=== PATIENT | female | born 1935 | race Caucasian/White ===

== ENCOUNTER 2016-10-22 14:27 | Inpatient (IN) | payer MEDICARE, BC ==
[~2016-10-22] VITALS: Ht 167.6 cm; Wt 89.1 kg
[~2016-10-22 14:27] MED LIST: COUMADIN6 MG PO; GLUCOPHAGE500 MG PO; NORCO 10/325 TA1 TA1 PO; PACERONE200 MG PO; PRINIVIL20 MG PO; TAZTIA; ZOCOR20 MG PO
[2016-10-22 17:57] VITALS: BP 148/58; BMI 31.3
[2016-10-22 18:00] VITALS: BP 163/69
[2016-10-22] MEDS ORDERED: JANTOVEN6 MG PO (18:02)
[2016-10-22] MEDS ORDERED: TIAZAC/CARDIZE240 M1 PO (18:04)
[2016-10-22] MEDS ORDERED: PRAVACHOL20 MG PO (18:05)
[2016-10-22 18:20] LABS: BASOPHILS 0.2 % (0-2); EOSINOPHILS 0.5 % (0-7); HEMATOCRIT 39.6 % (36.0-48.0); HEMOGLOBIN 13.4 g/dL (12-16); IMMATURE GRANULOCYTES 0.1 % (0-5); LYMPHOCYTES 9.2 % (15-50); MCH 30.9 pg (26.0-34.0); MCHC 33.8 g/dL (31.0-37.0); MCV 91.2 fL (80.0-100.0); MEAN PLATELET VOLUME 9.2 fL (7.4-10.4); MONOCYTES 8.6 % (2-11); NEUTROPHILS 81.4 % (40-80); RBC 4.34 10x6/uL (4.00-5.40); RDW 12.7 % (11.5-14.5); WBC 8.4 10x3/uL (4.8-10.8)
[2016-10-22 18:23] LABS: PLATELET COUNT 334 10x3/uL (130-400)
[2016-10-22 18:29] LABS: INR 1.79 (0.85-1.17); PROTIME 20.7 SECONDS (11.6-15.0)
[2016-10-22 18:41] LABS: ALBUMIN 3.1 g/dL (3.4-5.0); ANION GAP 15.8 mmol/L (8-16); BILIRUBIN - TOTAL 0.3 mg/dL (0.2-1.3); CALCIUM 8.7 mg/dL (8.5-10.1); CARBON DIOXIDE 22.9 mmol/L (21.0-32.0); CREATININE - SERUM 1.7 mg/dL (0.6-1.3); POTASSIUM - SERUM 4.7 mmol/L (3.5-5.1)
--- NOTE | 2016-10-22 19:00 | NUR ---
ASSISTED PATIENT TO BATHROOM AND BACK TO BED. GAIT IS VERY STEADY. AAOX4. RR EVEN AND UNLABORED. 0 S/S OF DISTRESS. DENIES PAIN AT THIS TIME. IV TO RIGHT AC PATENT WITH NO REDNESS OR SWELLING. TELEMETRY ON. FAMILY AT BEDSIDE. SRX2. BED LOW. CALL LIGHT WITHIN REACH.
[2016-10-22 20:23] LABS: APPEARANCE HAZY (CLEAR); BILIRUBIN NEGATIVE (NEGATIVE); COLOR YELLOW (YELLOW); GLUCOSE NEGATIVE (NEGATIVE); KETONE NEGATIVE (NEGATIVE); LEUKOCYTE ESTERASE 1+ (NEGATIVE); NITRITE NEGATIVE (NEGATIVE); PROTEIN 1+ mg/dL (NEGATIVE); UROBILINOGEN NORMAL (NORMAL)
[2016-10-22 20:24] LABS: BACTERIA MODERATE /hpf (NONE SEEN); RED CELLS - URINE OCC /hpf (0-5)
--- NOTE | 2016-10-22 23:10 | NUR ---
INITIATED FLUID BOLUS PER ORDER. PUT SCD'S ON PATIENT PER ORDER.
[2016-10-23 05:05] LABS: BASOPHILS 0.6 % (0-2); EOSINOPHILS 1.5 % (0-7); HEMATOCRIT 35.5 % (36.0-48.0); HEMOGLOBIN 12.1 g/dL (12-16); IMMATURE GRANULOCYTES 0.1 % (0-5); LYMPHOCYTES 11.4 % (15-50); MCH 30.8 pg (26.0-34.0); MCHC 34.1 g/dL (31.0-37.0); MCV 90.3 fL (80.0-100.0); MEAN PLATELET VOLUME 9.3 fL (7.4-10.4); MONOCYTES 11.1 % (2-11); NEUTROPHILS 75.3 % (40-80); PLATELET COUNT 317 10x3/uL (130-400); RBC 3.93 10x6/uL (4.00-5.40); RDW 12.7 % (11.5-14.5); WBC 6.8 10x3/uL (4.8-10.8)
[2016-10-23 05:39] LABS: ALBUMIN 2.4 g/dL (3.4-5.0); ANION GAP 12.9 mmol/L (8-16); BILIRUBIN - TOTAL 0.25 mg/dL (0.2-1.3); CARBON DIOXIDE 22.5 mmol/L (21.0-32.0); CHOL - HDL RATIO 4.8 ratio (2.3-4.1); CREATININE - SERUM 1.4 mg/dL (0.6-1.3); LDL-HDL RATIO 3.1 ratio (1.5-3.5); POTASSIUM - SERUM 4.4 mmol/L (3.5-5.1); PROTEIN - SERUM 5.3 g/dL (6.4-8.2)
[2016-10-23 08:48] VITALS: BP 171/64
--- NOTE | 2016-10-23 10:18 | CN ---
PATIENT NAME:VERONICA FERMIN MEDICAL RECORD: [id number] : 35 LOCATION:D.MS Ma2239 ADMIT DATE: 10/22/16 ACCOUNT: [id number] CONSULTING PHYSICIAN: MARCY WELLER MD REFERRING PHYSICIAN: JUSTYN GARCÍA DO DATE OF CONSULTATION: 10/22/2016 SURGICAL CONSULTATION SURGEON: Marcy Weller MD CHIEF COMPLAINT: Abdominal pain. HISTORY OF PRESENT ILLNESS: An 80-year-old female who was admitted to the hospital today with the diagnosis of pancreatic pseudocyst. She says she started having abdominal pain about 2 days ago. Since the onset, the pain has been constant. It fluctuates in intensity. The pain is located in both the left upper quadrant and along the right upper quadrant. She has been treated with outpatient antiemetics and antacids. She just complains of diarrhea, fatigue and weakness. She also states that she has had a significant 100-pound weight loss. Also, complains of early satiety. She had a laparoscopic cholecystectomy 3 years ago. At a walk-in clinic 1 week ago, her lipase was 169, but she has continued to decompensate. After she was seen by her primary care physician this morning, he ordered a CT scan and admitted to the hospital, which showed a large pseudocyst. surgical history: cholecystectomy, hysterectomy, tonsillectomy, drainage of a liver cyst. ALLERGIES: MACROBID. HOME MEDICATIONS: Please see electronic medical record for full list of home medications. SOCIAL HISTORY: , lives at home alone. Nonsmoker, nondrinker. PHYSICAL EXAMINATION: VITAL SIGNS: Temperature 98.1, heart rate 64, respirations 12, blood pressure 148/60 and satting 98% on room air. GENERAL: This is a well-developed, well-nourished female in moderate distress. PSYCHIATRIC: She is oriented times 3. EYES: Extraocular muscles are intact. EAR, NOSE AND THROAT: She has normal dentition. Mucous membranes are dry. NECK: Supple. CARDIOVASCULAR: Normal sinus rhythm. LUNGS: She had decreased breath sounds bilaterally. She has got rales on the left. ABDOMEN: Firm, mildly distended. It is dull to percussion. She has got tenderness to palpation diffusely, worse in the upper quadrants. No guarding, no rebound and no peritoneal signs. SKIN: Warm and dry, normal turgor. EXTREMITIES: She has got mild peripheral edema. NEUROLOGIC: She has a GCS of 15 with no focal deficits. LABORATORY DATA: Has been reviewed. Please see the electronic medical record for a full list of laboratory values. CT of the abdomen and pelvis images were CONSULT REPORT [id number] VERONICA FERMIN personally reviewed. The patient has a large 12 x 10 x 10 cm mass between the posterior stomach and the spleen. The patient has diffuse ascites along the abdomen as well as a pleural effusion. IMPRESSION: An 80-year-old female with pancreatic pseudocyst, abdominal pain, acute kidney injury and weight loss. PLAN: 1. The patient has been admitted to med/surg. 2. Continue IV fluids, n.p.o. 3. MRCP. 4. Consult gastroenterology for evaluation of ERCP. 5. Repeat labs in a.m. 6. I discussed the risks and benefits of multiple surgical procedures to the patient and her family at the bedside. I had also discussed the case with Dr. García. TRANSINT:[id number] Voice Confirmation ID: [id number] DOCUMENT ID: [id number] MARCY WELLER MD at 1018 CC: [id number] DICTATION DATE: 10/22/162139 SPEEDER HAND: 10/23/16 0208 ADM IN [place] [address] [place] [address]
--- NOTE | 2016-10-23 10:31 | NUR ---
Patient Name: VERONICA FERMIN Admission Status: Elective Accout number: [id number] Admission Date: 10-22-2016 : 1935 Admission Diagnosis: Attending: CLIFF Current LOS: 1 Anticipated DC Date: 10-25-2016 Planned Disposition: Home Primary Insurance: MEDICARE A & B Discharge Planning Comments: CM MET WITH PATIENT AND SPOUSE (LUIS) REGARDING D/C NEEDS AND PLANS. PATIENT LIVES WITH HER SPOUSE AND HE WILL DRIVE HER HOME AT DISCHARGE. PATIENT STATED SHE HAS 6 STEPS W/RAILS TO ENTER HOME AND NO STAIRS INSIDE HOME. PATIENT IS INDEPENDENT WITH HER CARE AND HAS A WALKER, AND GLUCOMETER (CHECKS WHEN SHE THINKS ABOUT IT). PATIENTS PCP IS DR. GARCÍA AND PHARMACY IS [facility] ON [address]. PATIENT REFUSED HOME HEALTH. CM WILL CONTINUE TO FOLLOW PATIENT WITH D/C NEEDS AND PLANS. PCP DR. GARCÍA [facility] [address] [phone] LUIS (SPOUSE) [phone] Medical Dosimetrist: Rosey Avina Is the patient Alert and Oriented? Yes 0 * How many steps to enter\exit or inside your home? 6 W/RAILS 0 * PCP DR. GARCÍA 0 * [facility] [address] [phone] 0 * Preadmission Environment Home with Family 0 * ADLs Independent 0 * Equipment Glucometer Walker 0 * List name and contact numbers for known caregivers / representatives who currently or will assist patient after discharge: LUIS (SPOUSE) [phone] 0 * Community resources currently utilized None 0 * Additional services required to return to the preadmission environment? Yes 0 * Can the patient safely return to the preadmission environment? Yes 0 * Has this patient been hospitalized within the prior 30 days at any hospital? No 0 Grand Total: 0
[2016-10-23 12:35] VITALS: BP 120/73
[2016-10-23 13:56] VITALS: Ht 167.6 cm; Wt 89.1 kg
[2016-10-23 15:05] VITALS: BP 184/82
--- NOTE | 2016-10-23 15:29 | NUR ---
CONFIRMED DOSE OF LISINOPRIL 40MG TWICE A DAY. PATIENT STATED "YES, I AM FOR SURE THAT IT MY LISINOPRIL IS PERSCRIBED 40MG TWICE A DAY."
--- NOTE | 2016-10-23 17:52 | HP ---
PATIENT: VERONICA FERMIN MEDICAL RECORD: [id number] ACCOUNT: [id number] LOCATION:D.MS Ma2239 : 35 ADMISSION DATE: 10/22/16 HISTORY AND PHYSICAL EXAMINATION HISTORY OF PRESENT ILLNESS: Ms. Webb is a pleasant 80-year-old white female who started having abdominal pain approximately 10-14 days ago. It has been pretty consistent and has actually been getting a little bit worse. She has had difficulties with nausea and vomiting and has been unable to keep much down. She has tried some antacids without much relief. She has had some diarrhea, fatigue and dizziness. She has a history of previous laparoscopic cholecystectomy. She was seen at the walk-in clinic about a week ago and had a mild elevation of her lipase at 169. Amylase was normal. Since then, she has gotten worse. She was sent for CT today, which shows pancreatitis with development of a pseudocyst. Amylase and lipase are pending. She is admitted at this time for further evaluation and therapy. PAST MEDICAL HISTORY: Significant for known hypertension, gastroparesis, prediabetes, atrial fibrillation and hyperlipidemia. PAST SURGICAL HISTORY: Include a cholecystectomy, hysterectomy, tonsillectomy, cataract removal and drainage of a liver cyst. ALLERGIES AND INTOLERANCES: INCLUDE BACTRIM, MACROBID, SIMVASTATIN AND CIPRO. HOME MEDICATIONS: Include Coumadin 6 mg tablets, 9 on Saturday and and 6 all other days, pravastatin 20 mg q. Saturday, Saturday and Saturday, fluticasone 50 mcg 2 puffs daily, lisinopril 40 mg b.i.d., Tiazac 360 daily, Carafate 1 gram 2 in the morning, 2 in the evening, omeprazole 1 a day and some allergy injections. PHYSICAL EXAMINATION: GENERAL: She appears mildly to moderately ill. She is in no distress. HEENT: Sclerae nonicteric. Mucous membranes appear a little dry. NECK: Soft and supple. HEART: Regular. LUNGS: Clear. ABDOMEN: Reveals some generalized tenderness. Liver and spleen are nonpalpable. There is a little bit more tenderness in the left upper quadrant. No edema. NEUROLOGIC: No focal changes on neuro exam. VITAL SIGNS: Height 5 feet 5 inches. Weight is 93.8. Temperature 98.3, BP 128/78, pulse is 79, O2 sat is 96% on room air. DIAGNOSTIC DATA: A KUB in the office reveals a nonspecific pattern. Chest x-ray reveals a left pleural effusion, which I suspect is reactive. IMPRESSION: 1. Acute pancreatitis. 2. History of hypertension, type 2 diabetes/prediabetes and urinary tract infection. PLAN: Admit, n.p.o., surgical consult, discussed with Dr. Castaneda, IV pain meds. We will culture her urine and add a quinolone for UTI. See orders for rest of the plan. HISTORY AND PHYSICAL [id number] VERONICA FERMIN TRANSINT:[id number] Voice Confirmation ID: [id number] DOCUMENT ID: [id number] JUSTYN GARCÍA DO at 1752 CC: [id number] DICTATION DATE: 10/22/161822 SHIPFITTERS SUPERVISOR: 10/22/162054 ADM IN [facility] [address] [place] [address]
[2016-10-23 18:28] LABS: INR 2.34 (0.85-1.17); PROTIME 25.7 SECONDS (11.6-15.0)
[2016-10-24 00:04] VITALS: BP 174/59
[2016-10-24 04:00] VITALS: BP 152/71
[2016-10-24 06:06] LABS: BASOPHILS 0.5 % (0-2); EOSINOPHILS 0.8 % (0-7); HEMATOCRIT 40.9 % (36.0-48.0); HEMOGLOBIN 13.6 g/dL (12-16); IMMATURE GRANULOCYTES 0.1 % (0-5); LYMPHOCYTES 12.6 % (15-50); MCH 30.6 pg (26.0-34.0); MCHC 33.3 g/dL (31.0-37.0); MCV 91.9 fL (80.0-100.0); MONOCYTES 10.8 % (2-11); NEUTROPHILS 75.2 % (40-80); RBC 4.45 10x6/uL (4.00-5.40); RDW 13.2 % (11.5-14.5); WBC 7.6 10x3/uL (4.8-10.8)
[2016-10-24 06:10] LABS: PLATELET COUNT 398 10x3/uL (130-400)
[2016-10-24 06:19] LABS: INR 2.41 (0.85-1.17); PROTIME 26.4 SECONDS (11.6-15.0)
[2016-10-24 06:33] LABS: ALBUMIN 2.8 g/dL (3.4-5.0); ANION GAP 16.6 mmol/L (8-16); BILIRUBIN - TOTAL 0.3 mg/dL (0.2-1.3); CALCIUM 8.7 mg/dL (8.5-10.1); CARBON DIOXIDE 19.6 mmol/L (21.0-32.0); CREATININE - SERUM 1.4 mg/dL (0.6-1.3); POTASSIUM - SERUM 4.2 mmol/L (3.5-5.1); PROTEIN - SERUM 6.1 g/dL (6.4-8.2)
[2016-10-24 08:39] VITALS: BP 165/56
[2016-10-24 13:22] VITALS: BP 182/67
[2016-10-24 17:30] VITALS: BP 141/55
[2016-10-24 20:00] VITALS: BP 164/63
[2016-10-25] VITALS: BP 120/51
[2016-10-25 04:00] VITALS: BP 152/61
[2016-10-25 06:06] LABS: ALBUMIN 2.3 g/dL (3.4-5.0); ANION GAP 13.7 mmol/L (8-16); BILIRUBIN - TOTAL 0.25 mg/dL (0.2-1.3); CARBON DIOXIDE 21.2 mmol/L (21.0-32.0); CREATININE - SERUM 1.2 mg/dL (0.6-1.3); POTASSIUM - SERUM 3.9 mmol/L (3.5-5.1)
[2016-10-25 07:03] LABS: BASOPHILS 0.5 % (0-2); EOSINOPHILS 1.6 % (0-7); HEMATOCRIT 35.5 % (36.0-48.0); HEMOGLOBIN 11.7 g/dL (12-16); IMMATURE GRANULOCYTES 0.3 % (0-5); MCH 30.2 pg (26.0-34.0); MCV 91.7 fL (80.0-100.0); MEAN PLATELET VOLUME 9.9 fL (7.4-10.4); MONOCYTES 11.2 % (2-11); NEUTROPHILS 74.4 % (40-80); PLATELET COUNT 379 10x3/uL (130-400); RBC 3.87 10x6/uL (4.00-5.40); RDW 13.1 % (11.5-14.5); WBC 7.4 10x3/uL (4.8-10.8)
[2016-10-25 07:18] LABS: INR 3.21 (0.85-1.17); PROTIME 33.1 SECONDS (11.6-15.0)
--- NOTE | 2016-10-25 07:55 | NUR ---
PT AOX4 RESP EVEN AND NONLABORED PT DENIES NEEDS AT THIS TIME IV TO RIGHT AC PATENT AND INTACT SRX2 BED AT LOWEST SETTING CALL LIGHT WITHIN REACH WILL CONTINUE TO MONITOR
[2016-10-25 08:30] VITALS: BP 183/66
[2016-10-25 12:48] VITALS: BP 146/68
[2016-10-25 17:06] VITALS: BP 107/83
[2016-10-25 20:00] VITALS: BP 152/53
--- NOTE | 2016-10-25 22:08 | NUR ---
PT RESTING IN BED. ALERT AND ORIENTED. NO SIGNS OF DISTRESS NOTED. SCHEDULED MEDS GIVEN. SHIFT ASSESSMENT COMPLETED. DENIES ANY NEEDS AT THIS TIME. BED LOW. CALL LIGHT IN REACH
[2016-10-26] VITALS: BP 146/69
[2016-10-26 04:00] VITALS: BP 166/66
--- NOTE | 2016-10-26 04:14 | NUR ---
CONTACT ISOLATION PRECAUTIONS. PT RESTING QUIETLY, EYES CLOSED. RESP EVEN, UNLABORED. NO DISTRESS NOTED. CONTINUE TAKER DOWN'S PLAN OF CARE.
[2016-10-26 06:30] LABS: BASOPHILS 0.3 % (0-2); EOSINOPHILS 1.7 % (0-7); HEMATOCRIT 36.5 % (36.0-48.0); HEMOGLOBIN 12.4 g/dL (12-16); IMMATURE GRANULOCYTES 0.1 % (0-5); LYMPHOCYTES 11.4 % (15-50); MCV 91.3 fL (80.0-100.0); MEAN PLATELET VOLUME 9.3 fL (7.4-10.4); MONOCYTES 11.1 % (2-11); NEUTROPHILS 75.4 % (40-80); PLATELET COUNT 389 10x3/uL (130-400); RDW 13.1 % (11.5-14.5); WBC 7.1 10x3/uL (4.8-10.8)
[2016-10-26 06:49] LABS: INR 2.81 (0.85-1.17); PROTIME 29.8 SECONDS (11.6-15.0)
[2016-10-26 07:23] LABS: ALBUMIN 2.2 g/dL (3.4-5.0); ANION GAP 12.6 mmol/L (8-16); BILIRUBIN - TOTAL 0.2 mg/dL (0.2-1.3); CALCIUM 7.8 mg/dL (8.5-10.1); CARBON DIOXIDE 21.2 mmol/L (21.0-32.0); CREATININE - SERUM 1.2 mg/dL (0.6-1.3); POTASSIUM - SERUM 3.8 mmol/L (3.5-5.1)
--- NOTE | 2016-10-26 07:50 | NUR ---
PT AOX4 RESP EVEN AND NONLABORED PT DENIES NEEDS AT THIS TIME IV TO RIGHT HAND PATENT AND INTACT SRX2 BED AT LOWEST SETTING CALL LIGHT WITHIN REACH WILL CONTINUE TO MONITOR
[2016-10-26 08:09] VITALS: BP 146/83
[2016-10-26] MEDS ORDERED: FLORAJEN3 CAPS460 MG PO (12:34)
[2016-10-26] MEDS ORDERED: DIOVAN80 MG PO (12:34)
[2016-10-26 12:38] VITALS: BP 113/77
[2016-10-26] MEDS ORDERED: OMNICEF300 MG PO (12:39)
[2016-10-26] MEDS ORDERED: ZOFRAN4 MG PO (12:41)
--- NOTE | 2016-10-26 12:52 | NUR ---
CM REASSESSMENT NOTE: PATIENT IS DISCHARGING TODAY/REFUSED HOME HEALTH/DENIED ANY OTHER NEEDS FOR DISCHARGE/PTS SPOUSE IS DRIVING HER HOME.
--- NOTE | 2016-10-26 16:24 | NUR ---
IV DISCONTINUED WITH CATHETER INTACT. PT GIVEN DISCHARGE INSTRUCTIONS AT THIS TIME
--- NOTE | 2016-10-26 16:33 | NUR ---
PT TAKEN VIA WHEELCHAIR VIA PRIVATE VEHICLE AT THIS TIME
== END 2016-10-26 16:35 | disposition home or self-care (01) | DRG 439 ==
LOC: D.CT 14:27 → OBSVTIME 16:48 → D.SDCHOLD 16:48 → D.MS 16:49
PROVIDERS: Family Medicine; ADMIT Family Medicine
DX: K85.80 Other acute pancreatitis without necrosis or infection (principal); N17.9 Acute kidney failure, unspecified; K86.3 Pseudocyst of pancreas; N39.0 Urinary tract infection, site not specified; R63.4 Abnormal weight loss; I10 Essential (primary) hypertension; I48.2 Chronic atrial fibrillation

== ENCOUNTER 2016-11-05 14:55 | Inpatient (IN) | payer MEDICARE, BC ==
[~2016-11-05] VITALS: Ht 165.1 cm; Wt 108.5 kg
[~2016-11-05 14:55] MED LIST changes: +DIOVAN80 MG PO; +FLORAJEN3 CAPS460 MG PO; +JANTOVEN6 MG PO; +OMNICEF300 MG PO; +PRAVACHOL20 MG PO; +TIAZAC/CARDIZE240 M1 PO; +ZOFRAN4 MG PO
--- NOTE | 2016-11-05 15:57 | NUR ---
TRANSFER FROM ADMISSIONS BY W/Ernst SHAH TO . CALL LIGHT IN REACH. WILL CONT. PLAN OF CARE.
--- NOTE | 2016-11-05 16:10 | NUR ---
RECIVED TO ROOM [address] ALARCON OFFICE. FAMILY AT SIDE. ADMIT ASSESSMENT PER RN
[2016-11-05 16:29] LABS: BASOPHILS 0.4 % (0-2); EOSINOPHILS 0.4 % (0-7); HEMATOCRIT 37.8 % (36.0-48.0); HEMOGLOBIN 12.5 g/dL (12-16); IMMATURE GRANULOCYTES 0.2 % (0-5); LYMPHOCYTES 7.7 % (15-50); MCH 30.8 pg (26.0-34.0); MCHC 33.1 g/dL (31.0-37.0); MCV 93.1 fL (80.0-100.0); MEAN PLATELET VOLUME 9.3 fL (7.4-10.4); MONOCYTES 9.7 % (2-11); NEUTROPHILS 81.6 % (40-80); PLATELET COUNT 367 10x3/uL (130-400); RBC 4.06 10x6/uL (4.00-5.40); RDW 13.3 % (11.5-14.5); WBC 5.6 10x3/uL (4.8-10.8)
[2016-11-05 16:37] LABS: INR 4.2 (0.85-1.17); PROTIME 41.1 SECONDS (11.6-15.0)
[2016-11-05 16:45] VITALS: BP 130/73; BMI 35.5
[2016-11-05 16:47] LABS: ALBUMIN 2.4 g/dL (3.4-5.0); ANION GAP 13.6 mmol/L (8-16); BILIRUBIN - TOTAL 0.24 mg/dL (0.2-1.3); CALCIUM 8.1 mg/dL (8.5-10.1); CARBON DIOXIDE 22.7 mmol/L (21.0-32.0); CREATININE - SERUM 1.7 mg/dL (0.6-1.3); MAGNESIUM - SERUM 1.7 mg/dL (1.8-2.4); POTASSIUM - SERUM 5.3 mmol/L (3.5-5.1); PRE-ALBUMIN 14.2 mg/dL (18.0-35.7)
--- NOTE | 2016-11-05 17:53 | NUR ---
WITHOUT CHANGES OR DISTRESS NOTED AT THIS TIME. FAMILY AT SIDE.
[2016-11-05 21:30] VITALS: BP 151/72
--- NOTE | 2016-11-05 22:30 | NUR ---
PT SEEN BY DR WELLER AND NEW ORDERED NOTED FOR 1000ML BOLUS OF NS TO BE ADMINISTERED. PT ALSO HAS D5.45NS @ 100ML/HR INFUSING. WILL MONITOR.
--- NOTE | 2016-11-05 23:46 | NUR ---
NS 1000ML IVF NOW UP AND INFUSING X [address] WELLER.
[2016-11-06 02:21] VITALS: BP 141/72
[2016-11-06 06:34] VITALS: BP 137/69
[2016-11-06 06:45] LABS: BASOPHILS 0.4 % (0-2); EOSINOPHILS 1.4 % (0-7); HEMATOCRIT 36.3 % (36.0-48.0); HEMOGLOBIN 12.1 g/dL (12-16); IMMATURE GRANULOCYTES 0.1 % (0-5); LYMPHOCYTES 7.4 % (15-50); MCH 30.6 pg (26.0-34.0); MCHC 33.3 g/dL (31.0-37.0); MCV 91.7 fL (80.0-100.0); MEAN PLATELET VOLUME 9.9 fL (7.4-10.4); MONOCYTES 11.9 % (2-11); NEUTROPHILS 78.8 % (40-80); PLATELET COUNT 426 10x3/uL (130-400); RBC 3.96 10x6/uL (4.00-5.40); RDW 13.2 % (11.5-14.5)
[2016-11-06 06:53] LABS: ANION GAP 11.4 mmol/L (8-16); BILIRUBIN - TOTAL 0.2 mg/dL (0.2-1.3); CALCIUM 7.6 mg/dL (8.5-10.1); CARBON DIOXIDE 23.3 mmol/L (21.0-32.0); CREATININE - SERUM 1.6 mg/dL (0.6-1.3); POTASSIUM - SERUM 4.7 mmol/L (3.5-5.1); PROTEIN - SERUM 4.7 g/dL (6.4-8.2)
[2016-11-06 06:57] LABS: INR 4.94 (0.85-1.17); PROTIME 46.8 SECONDS (11.6-15.0)
[2016-11-06 07:01] LABS: WBC 8.1 10x3/uL (4.8-10.8)
--- NOTE | 2016-11-06 08:08 | CN ---
PATIENT NAME:VERONICA FERMIN MEDICAL RECORD: [id number] : 35 LOCATION:[facility] D.2125 ADMIT DATE: 11/05/16 ACCOUNT: [id number] CONSULTING PHYSICIAN: MARCY WELLER MD REFERRING PHYSICIAN: JUSTYN GARCÍA DO DATE OF CONSULTATION: 11/05/2016 Surgical Consultation SURGEON: Marcy Weller MD. CHIEF COMPLAINT: Vomiting. HISTORY OF PRESENT ILLNESS: Mr. Fermin is an 81-year-old female well known to the service. She was admitted approximately 2 weeks ago with diagnosis of new onset of pancreatic pseudocyst. At that time, the patient had a large early 14 cm pseudocyst. She was discharged home. I guess over the last 48 hours, she has been having difficulty with persistent nausea and vomiting, early satiety. She is not having tremendous amount of pain, but she does have some left upper quadrant and epigastric pain. She complains of fullness the minute she eats, she becomes nauseous and/or throws up. She was discharged home approximately 10 days ago, tolerating a regular diet. PAST SURGICAL HISTORY: Cholecystectomy, hysterectomy, tonsillectomy, drainage of liver cyst. PAST MEDICAL HISTORY: Diabetes, atrial fibrillation, hypertension. ALLERGIES: SULFA, DOXYCYCLINE, CIPROFLOXACIN, MACROBID, SIMVASTATIN, BACTRIM, TRIMETHOPRIM. HOME MEDICATIONS: Include Diovan, Omnicef, Zofran, warfarin, Diltiazem, and pravastatin. FAMILY HISTORY: She denies any significant family history of cancer and heart disease. SOCIAL HISTORY: She is . She lives at home alone. She is a nonsmoker, nondrinker. REVIEW OF SYSTEMS: A 10-point review of systems was obtained. Pertinent positives and negatives as per the HPI. PHYSICAL EXAMINATION: VITAL SIGNS: Temperature 98.2, heart rate 71, respirations 18, blood pressure 130/73, satting 100% on room air. GENERAL: This is an elderly female in moderate distress. EYES: Extraocular muscles are intact. EAR, NOSE AND THROAT: Mucous membranes are dry. No oropharyngeal erythema or exudate. NECK: Supple. No JVD. CARDIOVASCULAR: Irregularly irregular. LUNGS: Decreased breath sounds bilaterally. ABDOMEN: Firm, mildly tender to palpation in the epigastric and left upper quadrant. She had hypoactive bowel sounds. No palpable hernia defects. CONSULT REPORT [id number] VERONICA FERMIN SKIN: Warm and dry with normal turgor. EXTREMITIES: She is neurovascularly intact. No peripheral edema. NEUROLOGIC: She has a GCS of 15 with no focal deficits. LABORATORY DATA: Reviewed. Please see electronic medical record for a full list of values for CBC, chemistry panel and coags. Previous laboratory data at the previous admission had a CA 19-9 that was 23. Her lipase is chronically elevated 394 today. IMAGING: Acute abdominal series was personally reviewed. She has a normal bowel gas pattern, no evidence of obstruction. IMPRESSION: This is an 81-year-old female with pancreatic pseudocyst, chronic vomiting, early satiety, moderate protein malnutrition and acute renal failure. PLAN: 1. The patient has been admitted to the hospital. 2. Continue IV fluid resuscitation. 3. We will consult the vascular access nurse for a PICC line, but will place a port if the patient would prefer port, discussed with the patient. We will discuss with her primary care physician in the morning. There is a CA 19-9 pending. 4. Monitor her urine output and creatinine for acute renal failure. 5. Supratherapeutic INR, hold Coumadin for procedures. Prealbumin is 14, agree with starting TPN as her pancreatic pseudocyst is likely causing external compression of her stomach and resulting in early satiety and chronic vomiting. TRANSINT:[id number] Voice Confirmation ID: [id number] DOCUMENT ID: [id number] MARCY WELLER MD at 0808 CC: [id number] DICTATION DATE: 11/05/162227 SURFACER OPERATOR: 11/06/16 0300 ADM IN [place] [address] [place] [address]
[2016-11-06 08:14] VITALS: BP 125/57
--- NOTE | 2016-11-06 08:27 | HP ---
PATIENT: VERONICA FERMIN MEDICAL RECORD: [id number] ACCOUNT: [id number] LOCATION:[address] : 35 ADMISSION DATE: 11/05/16 HISTORY AND PHYSICAL EXAMINATION HISTORY OF PRESENT ILLNESS: Ms. Fermin is an 81-year-old white female who was recently diagnosed with a large pseudocyst of the pancreas. She was discharged to home. She has not done well since then. She has had difficulties with nausea and vomiting. She had abdominal pain. She presents today with increasing nausea, vomiting and has been unable to keep anything down for the last couple of days. She complains of abdominal swelling. She complains of edema. Clinically, she appears dehydrated. She is going to be admitted for IV fluids and surgical consultation for possible central venous line placement with subsequent TPN until her pseudocyst can be treated. PAST MEDICAL HISTORY: Significant for recent diagnosis of pseudocyst, atrial fibrillation, hypertension, gastroparesis, type 2 diabetes and allergies. PAST SURGICAL HISTORY: Include cholecystectomy, hysterectomy, T&A, and cataract removal. ALLERGIES AND INTOLERANCES: INCLUDE CIPRO, BACTRIM, MACROBID AND SIMVASTATIN. HOME MEDICATIONS: Include Coumadin 9 mg on Tuesdays and , and 6 mg all other days; pravastatin 20 mg Saturday, Saturday and Saturday; fluticasone, valsartan 80 mg a day, Tiazac 360 mg 1 a day, Carafate 2 in the morning, 2 in the evening; omeprazole 40 mg a day, Culturelle capsules, Zofran p.r.n. and allergy injections. FAMILY HISTORY: Noncontributory. SOCIAL HISTORY: The patient is . She does not smoke or drink. REVIEW OF SYSTEMS: She denies any fever. She just feels terrible with nausea, vomiting, diarrhea, abdominal bloating, edema and shortness of breath. PHYSICAL EXAMINATION: GENERAL: She appears mild to moderately ill. HEENT: Mucous membranes are dry. HEART: Irregularly irregular with normal rate. LUNGS: Clear. ABDOMEN: Feels a little distended, but good bowel sounds. No masses are appreciated. EXTREMITIES: Lower extremities reveal 2+ edema. NEUROLOGIC: Without any gross focal deficits. IMPRESSION: 1. Dehydration. 2. Intractable nausea, vomiting and diarrhea. 3. Pancreatic pseudocyst. PLAN: Admit for observation. IV fluids. Discussed with Dr. Duran who is out of town, but the patient may need TPN so she can get n.p.o. and try to get her pancreas to settle down. She has a scheduled followup for repeat CT in November. We will follow BMP. See orders for plan. HISTORY AND PHYSICAL [id number] VERONICA FERMIN Alec TRANSINT:[id number] Voice Confirmation ID: [id number] DOCUMENT ID: [id number] JUSTYN GARCÍA DO at 0827 CC: [id number] DICTATION DATE: 11/05/161920 MANAGER TRAINING: 11/05/162101 ADM IN [place] [address] [place] [address]
--- NOTE | 2016-11-06 08:32 | NUR ---
ASSESSMENT DONE. DENIES NEEDS.
--- NOTE | 2016-11-06 09:23 | NUR ---
RESTS WITH EYES CLOSED. CALL LIGHT IN REACH. WILL MONITOR NEEDS.
[2016-11-06 12:00] VITALS: BP 155/69
[2016-11-06 12:41] VITALS: Ht 165.1 cm; Wt 108.5 kg
--- NOTE | 2016-11-06 15:48 | NUR ---
Nutrition follow-up/consult: Order for TPN per Dr. Castaneda. Chart reviewed. TPN order written and sent to pharmacy RN to decrease D5 1/2 NS to 60 ml/hr after TPN begins to keep IVF @ 100 ml/hr. Recommend changing IVF to 1/2 NS @ KVO. TPN will increase to 60 ml/hr after [address]N following.
--- NOTE | 2016-11-06 17:51 | NUR ---
WITHOUT CHANGES OR DISTRESS NOTED AT THIS TIME. DENIES NEEDS.
[2016-11-06 20:39] VITALS: BP 179/75
[2016-11-07 00:47] VITALS: BP 183/74
--- NOTE | 2016-11-07 02:51 | NUR ---
MEDICATED WITH ZOFRAN 4MG SIVP FOR NAUSEA. TPN CONTINUES AT 40ML/HR TO PICC LINE AND D5.45NS @ 60ML/HR INFUSING ALSO.
[2016-11-07 04:56] VITALS: BP 182/78
[2016-11-07 05:55] LABS: BASOPHILS 0.2 % (0-2); EOSINOPHILS 0.9 % (0-7); HEMATOCRIT 37.4 % (36.0-48.0); HEMOGLOBIN 12.4 g/dL (12-16); IMMATURE GRANULOCYTES 0.2 % (0-5); LYMPHOCYTES 6.2 % (15-50); MCH 30.3 pg (26.0-34.0); MCHC 33.2 g/dL (31.0-37.0); MCV 91.4 fL (80.0-100.0); MEAN PLATELET VOLUME 9.3 fL (7.4-10.4); MONOCYTES 10.1 % (2-11); NEUTROPHILS 82.4 % (40-80); PLATELET COUNT 413 10x3/uL (130-400); RBC 4.09 10x6/uL (4.00-5.40); RDW 13.4 % (11.5-14.5); WBC 9.2 10x3/uL (4.8-10.8)
[2016-11-07 06:04] LABS: INR 3.6 (0.85-1.17); PROTIME 36.3 SECONDS (11.6-15.0)
[2016-11-07 06:26] LABS: ANION GAP 12.6 mmol/L (8-16); BILIRUBIN - TOTAL 0.22 mg/dL (0.2-1.3); CARBON DIOXIDE 22.3 mmol/L (21.0-32.0); CREATININE - SERUM 1.6 mg/dL (0.6-1.3); MAGNESIUM - SERUM 1.7 mg/dL (1.8-2.4); PHOSPHOROUS 4.4 mg/dL (2.5-4.9); POTASSIUM - SERUM 4.9 mmol/L (3.5-5.1)
[2016-11-07 08:00] VITALS: BP 161/71
[2016-11-07 12:00] VITALS: BP 153/79
--- NOTE | 2016-11-07 14:30 | NUR ---
Nutrition follow-up: Chart reviewed New order sent to pharmcy for TPN @ 75 ml/hr Intralipids 20% 250 ml Q 72 hours This will better meet pts estimated nutritional needs for long-term home TPN. RDN following.
--- NOTE | 2016-11-07 15:56 | NUR ---
UP TO BR. IV PATENT. NO NEEDS INDICATED. WILL CONT. PLAN OF CARE.
--- NOTE | 2016-11-07 16:13 | NUR ---
Patient Name: VERONICA FERMIN Admission Status: Urgent Accout number: [id number] Admission Date: 11-06-2016 : 1935 Admission Diagnosis: Attending: CLIFF Current LOS: 1 Anticipated DC Date: 11-08-2016 Planned Disposition: Home with Home Health Primary Insurance: MEDICARE A & B PLANNED EXTERNAL PROVIDER: [facility], [facility] Discharge Planning Comments: * Is the patient Alert and Oriented? Yes 0 * How many steps to enter\exit or inside your home? 2 0 * PCP DR. GARCÍA 0 * Pharmacy [facility] [address] 0 * Preadmission Environment Home with Family 0 * ADLs Independent 0 * Equipment None 0 * Other Equipment NO MEDICAL EQUIPMENT PROVIDER PREFERENCE 0 * List name and contact numbers for known caregivers / representatives who currently or will assist patient after discharge: LUIS FERMIN, SPOUSE, SHAQUILLE PETERSEN, DTR, 0 * Community resources currently utilized None 0 * Please name any agencies selected above. NONE 0 * Additional services required to return to the preadmission environment? Yes * Can the patient safely return to the preadmission environment? Yes 0 * Has this patient been hospitalized within the prior 30 days at any hospital? Yes 0 CM RECEIVED ORDER TO ARRANGE HOME TPN INFUSION. CM MET WITH PT IN ROOM TO DISCUSS DISCHARGE PLANNING AND NEEDS. PT REPORTS LIVING AT HOME INDEPENDENTLY WITH HER SPOUSE. PT HAS NO MEDICAL EQUIPMENT AND NO OUTSIDE SERVICES ASSISTING IN THE HOME. CM DISCUSSED AVAILABILITY OF HOME HEALTH, REHAB SERVICES AND MEDICAL EQUIPMENT. PT WOULD LIKE [facility] AND HAS NO PREFERENCE FOR INFUSION COMPANY. CHOICE SIGNED FOR [facility]. PT REPORTS HER SPOUSE WILL PICK HER UP FOR DISCHARGE HOME. CM CALLED [facility], , WHO REPORTED THEY PROVIDE TPN AND EQUIPMENT FOR HOME INFUSION; CM FAXED REFERRAL TO [facility] AT [phone]. CM CALLED [facility], , PROVIDED REFERRAL TO [facility] WHO WILL CHECK WITH ASSEMBLER BILLIARD TABLE TOMORROW TO DETERMINE IF [facility] WILL ACCEPT PT. CM FAXED REFERRAL TO [facility] AT [phone]. CM WAITING SPECIFIC HOME HEALTH AND INFUSION ORDERS SPECIFYING TPN FORMULA, DOSE, RATE AND DURATION TO COMPLETE HOME HEALTH AND IV INFUSION ARRANGEMENTS. Powder Truck Driver: Familia Zaragoza
--- NOTE | 2016-11-07 17:21 | NUR ---
D/C HOME PER PERSONAL VEHICLE W/
--- NOTE | 2016-11-07 18:20 | NUR ---
LIPIDS TO BE RUN OVER 6 HOURS PER PHARMACIST
--- NOTE | 2016-11-07 19:30 | NUR ---
REPORT RECIEVED. ASSESSMENT COMPLETED. PT SLEEPING IN BED.
[2016-11-07 20:04] VITALS: BP 175/78
[2016-11-07 23:53] VITALS: BP 167/80
--- NOTE | 2016-11-08 02:00 | NUR ---
PT SLEEPING WITH LIGHTS AND TV OFF.
[2016-11-08 03:47] VITALS: BP 168/78
--- NOTE | 2016-11-08 04:50 | NUR ---
PT STATED " SHE WAS SICK TO HER STOMACH AND COULD SHE HAVE NAUSEA MEDICINE". PRN ZOFRAN GIVEN.
[2016-11-08 06:47] LABS: BASOPHILS 0.2 % (0-2); HEMATOCRIT 35.1 % (36.0-48.0); HEMOGLOBIN 11.8 g/dL (12-16); IMMATURE GRANULOCYTES 0.2 % (0-5); LYMPHOCYTES 4.4 % (15-50); MCH 30.6 pg (26.0-34.0); MCHC 33.6 g/dL (31.0-37.0); MCV 90.9 fL (80.0-100.0); MEAN PLATELET VOLUME 9.7 fL (7.4-10.4); NEUTROPHILS 82.2 % (40-80); PLATELET COUNT 361 10x3/uL (130-400); RBC 3.86 10x6/uL (4.00-5.40); RDW 13.3 % (11.5-14.5); WBC 9.7 10x3/uL (4.8-10.8)
[2016-11-08 07:07] LABS: ALBUMIN 1.9 g/dL (3.4-5.0); ANION GAP 14.3 mmol/L (8-16); BILIRUBIN - TOTAL 0.3 mg/dL (0.2-1.3); CALCIUM 7.7 mg/dL (8.5-10.1); CARBON DIOXIDE 20.3 mmol/L (21.0-32.0); CREATININE - SERUM 1.4 mg/dL (0.6-1.3); MAGNESIUM - SERUM 1.7 mg/dL (1.8-2.4); PHOSPHOROUS 4.5 mg/dL (2.5-4.9); POTASSIUM - SERUM 4.6 mmol/L (3.5-5.1); PROTEIN - SERUM 4.7 g/dL (6.4-8.2)
--- NOTE | 2016-11-08 07:30 | NUR ---
SHIFT REPORT RECEIVED. PT IN BED WITH LIGHT OUT. REPORTS NO PAIN AT THIS TIME. PICC LINE ON RIGHT UPPER ARM. PATENT WITH DRESSING INTACT. BRUISES NOTED ON BOTH ARMS. SALINE LOCK ON LEFT FOREARM. DRESSING INTACT. PT REPORT SOME NAUSEA. WILL CONTINUE TO MONITOR.
[2016-11-08 08:04] VITALS: BP 158/82
--- NOTE | 2016-11-08 10:22 | NUR ---
ZOFRAN GIVEN FOR NAUSEA.
[2016-11-08 11:12] LABS: INR 1.34 (0.85-1.17); PROTIME 16.4 SECONDS (11.6-15.0)
[2016-11-08 11:44] VITALS: BP 179/69
--- NOTE | 2016-11-08 12:29 | NUR ---
PT RESTING QUIETLY. CURRENTLY DOES NOT HAVE NAUSEA. BS 157.
--- NOTE | 2016-11-08 13:15 | NUR ---
CASE MANAGEMENT IN ROOM WITH PATIENT.
--- NOTE | 2016-11-08 13:39 | NUR ---
SCD'S APPLIED PER DOCTOR'S ORDERS. PT RESTING IN BED. CALL LIGHT IN REACH. NO OTHER NEEDS AT THIS TIME.
--- NOTE | 2016-11-08 13:44 | NUR ---
Patient Name: VERONICA FERMIN Encounter No: [id number] : 1935 Primary Insurance: MEDICARE A & B Anticipated DC Date: 11-08-2016 Planned Disposition: Home with Home Health External Planned Provider: [facility] DCP follow-up note: CM RECEIVED CALL FROM [facility] OF [facility], THEY CANNOT ADMIT PT UNTIL SATURDAY OR SATURDAY OF NEXT WEEK. CM RECEIVED CALL FROM [facility] INF[facility]ION WHO WILL REQUIRE SPECIFIC TPN ORDERS TO INCLUDE INFUSION TIMES IN ORDER TO CONTINUE PROCESSING FOR DELIVERY TO HOSPITAL FOR DISCHARGE HOME. CM MET AND SPOKE TO PT WHO DID NOT WANT TO WAIT FOR [facility] TO ADMIT ON SATURDAY OR SATURDAY, CHOSE [facility], CHOICE UPDATED. PT ADVISED THAT [facility] REPORTS PT'S TPN IS COVERED BY INSURANCE SHE IS NPO. PT EXPECTS TO GO HOME TOMORROW, SPOUSE TO TRANSPORT HOME. IMPORTANT MESSAGE FROM MEDICARE PROVIDED AND DISCUSSED. CM CALLED [facility], , PROVIDED REFERRAL TO [facility] WHO REPORTS THEY CAN ADMIT PT ON SAME DAY OR FOLLOWING MORNING; CM FAXED REFERRAL TO [place] AT [phone]. FOR DISCHARGE, CM TO PROVIDE [facility] WITH TPN ORDER AT FAX [phone]; CM TO FAX DISCHARGE INFORMATION TO [facility] AT [phone]. FOR HOME TPN ARRANGEMENT COMPLETION ADN TO ARRANGE HOSPITAL DELIVERY, [facility] REQUIRES SPECIFIC TPN ORDERS THAT MUST SPECIFY EITHER CONTNUOUS OR INFUSION TIMES. [facility] CAN MANAGE LABS AND TPN IF ORDER SPECIFIES "[facility] TO MANAGE TPN". Familia Zaragoza, CASE MANAGEMENT
--- NOTE | 2016-11-08 13:46 | NUR ---
SPOKE WITH CASE MANAGEMENT. HE'S WORKING ON DISCHARGE ORDERS. DOES NOT HAVE A DATE FOR DISCHARGE YET. DOCTORS HAVE NOT OK DISCHARGE FOR PATIENT AT THIS TIME.
--- NOTE | 2016-11-08 14:19 | NUR ---
CASE MANAGEMENT STATED THAT DR. CHAU OK DISCHARGE. DISCHARGE ORDERS BEING PUT TOGETHER.
--- NOTE | 2016-11-08 15:02 | NUR ---
UNPLUGGED SCD'S TO ALLOW PT GO TO THE BATHROOM. PT AMBULATED INDEPENDENTLY TO THE BATHROOM.
--- NOTE | 2016-11-08 15:24 | NUR ---
PT REPORTED NAUSEA AFTER AMBULATING TO THE BATHROOM. ZOFRAN GIVEN PER ORDERS. URINE SPECIMENT COLLECTED. PT BACK IN BED WITH SCD'S ON. NS TURNED DOWN TO 10M/HR PER ORDERS.
[2016-11-08 16:00] VITALS: BP 184/77
[2016-11-08 16:49] LABS: APPEARANCE HAZY (CLEAR); BILIRUBIN NEGATIVE (NEGATIVE); COLOR YELLOW (YELLOW); GLUCOSE 50 mg/dL (NEGATIVE); NITRITE NEGATIVE (NEGATIVE); SPECIFIC GRAVITY 1.025 (1.005-1.020); UROBILINOGEN NORMAL (NORMAL)
[2016-11-08 16:50] LABS: KETONE NEGATIVE (NEGATIVE); PROTEIN 1+ mg/dL (NEGATIVE)
[2016-11-08 16:51] LABS: BACTERIA MODERATE /hpf (NONE SEEN); EPITHELIAL CELLS 0-5 /hpf (0-5); GRANULAR CAST OCC /lpf (NONE SEEN); HYALINE CAST 0-5 /lpf (NONE SEEN); LEUKOCYTE ESTERASE TRACE (NEGATIVE); MUCUS <1+ /lpf (NONE SEEN); WHITE CELLS - URINE 0-5 /hpf (0-5)
--- NOTE | 2016-11-08 17:12 | NUR ---
BP OF 184/72 TREATED WITH 10MG OF HYDRALAZINE PER ORDERS.
--- NOTE | 2016-11-08 18:27 | NUR ---
PT REPORTED SOB. ELEVATED HEAD OF BED. BP CHECKED 150/72, FL 89, O2 SAT 97%. PT TRANSFERRED TO CHAIR TO HELP WITH BREATHING. 02 VIA NASAL CANULA APPLIED AT 1L TO HELP HER BREATHE BETTER. BS CHECKED 185. WHEEZING NOTED ON INSPIRATION ON L AND R UPPER LOBES. PT ALSO BECAME NAUSEATED. COLD WASH CLOTH PROVIDED. WILL CONTINUE TO MONITOR.
[2016-11-08 19:00] VITALS: BP 175/64
--- NOTE | 2016-11-08 19:10 | NUR ---
Recieved patient resting in bed with eyes closed, assessment completed per flowsheet. Patient AO x4, calm and cooperative. Eyes PERRLA @ 4mm with brisk response, sclera is white. S1/S2 noted, rhythmic and regular. Breathing is even and unlabored on room air, Lung sounds clear throughout. Abdomen is round and soft, non-tender to palpation with bowel sounds active x4. Patient ambulates to commode without assisstance, slightly unsteady gait noted. Full ROM all extremities with all pulses palpable, cap refill <3 sec. R upper arm PICC noted, dressing intact with TPN @ 75ml/hr and NS @ 10ml/hr. Patient c/o nausea, will provide PRN medication when available. Denies pain or other needs at this time, all VSS and will continue to monitor.
--- NOTE | 2016-11-08 21:00 | NUR ---
Patient c/o Nausea, provided PRN medication. No further needs at this time, all VSS and will continue to monitor.
--- NOTE | 2016-11-08 23:00 | NUR ---
Patient resting in bed with eyes closed. Breathing is even and unlabored on room air with O2 sat 95%. Denies pain or other needs at this time, all VSS and will continue to monitor.
[2016-11-09] VITALS: BP 154/69
--- NOTE | 2016-11-09 01:00 | NUR ---
Patient resting in bed with eyes closed, breathing is even and unlabored on room air. Denies pain or other needs at this time, all VSS and will continue to monitor.
--- NOTE | 2016-11-09 03:00 | NUR ---
Patient resting in bed with eyes closed, reassessment completed per flowsheet. Patient AO x4, calm and cooperative. Patient c/o nausea, cool washcloth provided and will give PRN medication when available.S1/S2 noted, rhythmic and regular. Breathing is even and unlabored on room air, O2 sat 94%. Denies pain or other needs at this time, all VSS and will continue to monitor.
[2016-11-09 04:00] VITALS: BP 163/73
--- NOTE | 2016-11-09 05:00 | NUR ---
Patient c/o Nausea, PRN Zofran given and cool washcloth provided. Will continue to monitor.
[2016-11-09 05:48] LABS: BASOPHILS 0.2 % (0-2); EOSINOPHILS 0.6 % (0-7); HEMATOCRIT 37.1 % (36.0-48.0); HEMOGLOBIN 12.2 g/dL (12-16); IMMATURE GRANULOCYTES 0.3 % (0-5); MCH 29.9 pg (26.0-34.0); MCHC 32.9 g/dL (31.0-37.0); MCV 90.9 fL (80.0-100.0); MEAN PLATELET VOLUME 9.7 fL (7.4-10.4); MONOCYTES 11.6 % (2-11); NEUTROPHILS 80.3 % (40-80); PLATELET COUNT 297 10x3/uL (130-400); RBC 4.08 10x6/uL (4.00-5.40); RDW 13.2 % (11.5-14.5); WBC 11.4 10x3/uL (4.8-10.8)
[2016-11-09 06:10] LABS: ANION GAP 15.1 mmol/L (8-16); BILIRUBIN - TOTAL 0.4 mg/dL (0.2-1.3); CALCIUM 7.9 mg/dL (8.5-10.1); CARBON DIOXIDE 20.7 mmol/L (21.0-32.0); CREATININE - SERUM 1.4 mg/dL (0.6-1.3); MAGNESIUM - SERUM 1.7 mg/dL (1.8-2.4); PHOSPHOROUS 4.4 mg/dL (2.5-4.9); POTASSIUM - SERUM 4.8 mmol/L (3.5-5.1); PROTEIN - SERUM 5.1 g/dL (6.4-8.2)
--- NOTE | 2016-11-09 07:19 | NUR ---
PT SITTING UP IN BED WATCHING TV, DENIES NEEDS WILL CONT TO MONITOR
[2016-11-09 07:56] VITALS: BP 151/80
--- NOTE | 2016-11-09 09:33 | NUR ---
WAS CALLED TO PT ROOM TO ADMINISTER ZOFRAN. PT IS IN BED WITH WASHCLOTH OVER HER FACE HOLDING BATH BASIN. AND DAUGHTER AT BEDSIDE. DAUGHTER ASKED WHEN PT HAD LAST ZOFRAN INJECTION. TOLD HER IT WAS AT 5 AM. PT DAUGHTER SAID "WELL SHE NEEDS HER ZOFRAN EVERY 4 HOURS ON THE DOT AND YALL NEED TO GIVE IT TO HER." EXPLAINED TO PT AND PT FAMILY THAT IT IS A PRN DRUG, WE DO NOT ADMINISTER IT ON A SCHEDULE. LET THEM KNOW THAT SINCE SHE RECEIVED IT AROUND 9:20, THEN SHE CAN REQUEST TO HAVE IT AGAIN AT 1:20. BUT SHE DOES HAVE TO ASK FOR IT. PT AND PT FAMILY VERBALIZE UNDERSTANDING.
[2016-11-09] MEDS ORDERED: PROTONIX40 MG PO (10:48)
[2016-11-09 11:55] VITALS: BP 179/68
[2016-11-09 12:00] LABS: INR 1.21 (0.85-1.17); PROTIME 15.1 SECONDS (11.6-15.0)
--- NOTE | 2016-11-09 13:07 | NUR ---
Patient Name: VERONICA FERMIN Encounter No: [id number] : 1935 Primary Insurance: MEDICARE A & B Anticipated DC Date: 11-09-2016 Planned Disposition: Home with Home Health External Planned Provider: [facility] / [facility] DCP follow-up note: CM NOTIFIED PT WILL NOT DISCHARGE HOME TODAY. CM CALLED AND NOTIFIED KAM OF [facility] [phone] AND YAS OF [facility] AT [phone]. [facility] CAN PROVIDE TPN FOR WEEKEND DISCHARGE IF NEEDED. FOR DISCHARGE, NOTIFY [facility],[phone], WHO WILL NEED EARLY NOTIFICATION POSSIBLE ON DAY OF DISCHARGE IT WILL TAKE AT LEAST THREE HOURS TO MIX AND DELIVER TPN TO THE HOSPITAL FOR DISCHARGE HOME. ALSO NOTIFY [facility], [place] OFFICE, ; FAX DISCHARGE INFORMATION TO [place] AT [phone]. Familia Zaragoza, CASE MANAGEMENT
--- NOTE | 2016-11-09 14:54 | NUR ---
Nutrition Follow Up: Chart reviewed. Noted pt will not d/c today. +BM 11/08/16. Wt stable. Labs reviewed. Meds noted. Pt with TPN of D25, AA 4.25% @ 75 ml/hr; 20% Lipids 250 ml every 72 hours. Current TPN regimen is adequate for d/c home. RD will continue to monitor pt progress.
--- NOTE | 2016-11-09 18:01 | NUR ---
PT SITTING UP IN BED DENIES NEEDS
[2016-11-09 19:00] VITALS: BP 181/84
--- NOTE | 2016-11-09 20:57 | NUR ---
HS MEDS GIVEN, DENIES NEEDS.
[2016-11-10] VITALS: BP 188/110
--- NOTE | 2016-11-10 02:33 | NUR ---
HYDRALAZINE 10 MG GIVEN IV FOR ELEVATED BP OF 188/110.
[2016-11-10 04:00] VITALS: BP 127/70
[2016-11-10 06:38] LABS: BASOPHILS 0.1 % (0-2); EOSINOPHILS 0.1 % (0-7); HEMATOCRIT 39.9 % (36.0-48.0); HEMOGLOBIN 13.1 g/dL (12-16); IMMATURE GRANULOCYTES 0.5 % (0-5); LYMPHOCYTES 1.6 % (15-50); MCH 30.2 pg (26.0-34.0); MCHC 32.8 g/dL (31.0-37.0); MCV 91.9 fL (80.0-100.0); MONOCYTES 8.6 % (2-11); NEUTROPHILS 89.1 % (40-80); PLATELET COUNT 283 10x3/uL (130-400); RBC 4.34 10x6/uL (4.00-5.40); RDW 13.2 % (11.5-14.5)
[2016-11-10 06:39] LABS: WBC 14.5 10x3/uL (4.8-10.8)
[2016-11-10 06:45] LABS: INR 1.12 (0.85-1.17); PROTIME 14.3 SECONDS (11.6-15.0)
[2016-11-10 06:46] LABS: HEMOGLOBIN A1C 5.8 % (4.8-6.0)
[2016-11-10 07:00] LABS: ALBUMIN 2.5 g/dL (3.4-5.0); ANION GAP 17.2 mmol/L (8-16); BILIRUBIN - TOTAL 0.4 mg/dL (0.2-1.3); CALCIUM 8.5 mg/dL (8.5-10.1); CARBON DIOXIDE 20.3 mmol/L (21.0-32.0); CREATININE - SERUM 1.5 mg/dL (0.6-1.3); MAGNESIUM - SERUM 1.9 mg/dL (1.8-2.4); PHOSPHOROUS 4.1 mg/dL (2.5-4.9); POTASSIUM - SERUM 5.5 mmol/L (3.5-5.1); PROTEIN - SERUM 5.6 g/dL (6.4-8.2)
--- NOTE | 2016-11-10 07:09 | NUR ---
PT SITTING UP IN BED SLEEPING NO S/S DISTRESS NOTED. RR EVEN AND UNLABORED. WILL CONT TO MONITOR
[2016-11-10 09:12] VITALS: BP 155/71
--- NOTE | 2016-11-10 10:07 | NUR ---
STAFF HAS ASKED PT TWICE TO GET CLEANED UP AND DO LINEN CHANGE. PT REFUSED BOTH TIMES.
[2016-11-10 12:39] VITALS: BP 172/76
--- NOTE | 2016-11-10 14:33 | NUR ---
PT SITTING UP IN BED DENIES NEEDS WILL CONT TO MONITOR
[2016-11-10 15:50] VITALS: BP 176/69
--- NOTE | 2016-11-10 16:35 | NUR ---
PT SITTING UP IN BED DENIES NEEDS WILL CONT TO MONITOR. AT BEDSIDE
--- NOTE | 2016-11-10 18:10 | NUR ---
PT SITTING UP IN BED DENIES NEEDS OTHER THAN ZOFRAN WHEN TIME. NOT DUE UNTIL 1999.
[2016-11-10 19:00] VITALS: BP 153/79
--- NOTE | 2016-11-10 19:35 | NUR ---
INITIAL ROUNDS COMPLETED. PT RESTING WITH EYES CLOSED. RESP EVEN AND REGULAR. SR UP X2, CALL LIGHT WITHIN REACH.
[2016-11-11] VITALS (8 sets, daily range): BP systolic 144–212; BP diastolic 58–81
--- NOTE | 2016-11-11 00:12 | NUR ---
ZOFRAN 4MG SIVP GIVEN FOR C/O NAUSEA. NEW TPN BAG WITH NEW TUBING HUNG. WILL CONTINUE TO MONITOR.
--- NOTE | 2016-11-11 03:14 | NUR ---
PT RESTING WITH EYES CLOSED. RESP EVEN AND REGULAR. SR UP X2, CALL LIGHT WITHIN REACH.
[2016-11-11 04:52] LABS: BASOPHILS 0 % (0-2); EOSINOPHILS 0.1 % (0-7); HEMATOCRIT 35.4 % (36.0-48.0); HEMOGLOBIN 11.5 g/dL (12-16); IMMATURE GRANULOCYTES 0.5 % (0-5); LYMPHOCYTES 2.7 % (15-50); MCH 29.6 pg (26.0-34.0); MCHC 32.5 g/dL (31.0-37.0); MCV 91.2 fL (80.0-100.0); MEAN PLATELET VOLUME 9.6 fL (7.4-10.4); MONOCYTES 8.9 % (2-11); NEUTROPHILS 87.8 % (40-80); PLATELET COUNT 252 10x3/uL (130-400); RBC 3.88 10x6/uL (4.00-5.40); RDW 13.1 % (11.5-14.5); WBC 17.7 10x3/uL (4.8-10.8)
[2016-11-11 05:04] LABS: INR 1.16 (0.85-1.17); PROTIME 14.6 SECONDS (11.6-15.0)
[2016-11-11 05:11] LABS: ANION GAP 14.8 mmol/L (8-16); BILIRUBIN - TOTAL 0.3 mg/dL (0.2-1.3); CALCIUM 8.2 mg/dL (8.5-10.1); CARBON DIOXIDE 18.8 mmol/L (21.0-32.0); CREATININE - SERUM 1.7 mg/dL (0.6-1.3); MAGNESIUM - SERUM 1.8 mg/dL (1.8-2.4); PHOSPHOROUS 3.8 mg/dL (2.5-4.9); POTASSIUM - SERUM 5.6 mmol/L (3.5-5.1); PROTEIN - SERUM 4.8 g/dL (6.4-8.2)
--- NOTE | 2016-11-11 06:50 | NUR ---
AM FSBS 326. PT UP TO BR. PT VERY SOB WITH ACTIVITY. O2 SAT 87%. ASSISTED PT BACK TO BED. FAN PLACED ON. RESP LABORED. PT'S O2 SAT TO 92% WITHIN 10 MINUTES. NEEDS MET; WILL CONTINUE TO MONITOR.
--- NOTE | 2016-11-11 08:35 | NUR ---
ASSESSMENT DONE. DENIES NEEDS,
--- NOTE | 2016-11-11 10:54 | NUR ---
IV PATENT. CALL LIGHT IN REACH. FAMILY AT BS. WILL CONT. PLAN OF CARE.
[2016-11-11 11:47] LABS: AMYLASE - SERUM 24 U/L (25-115); LIPASE 234 U/L (73-393)
--- NOTE | 2016-11-11 17:21 | NUR ---
WITHOUT CHANGES OR DISTRESS NOTED AT THIS TIME. DENIES NEEDS.
[2016-11-11 19:15] LABS: TROPONIN-I 0.045 ng/mL (0.000-0.060)
--- NOTE | 2016-11-11 23:46 | NUR ---
INITIAL ROUNDS COMPLETED AT 1915 HRS. PT TALKING ON PHONE. SBP 212. INFORMED LSAIX JUST GIVEN AND WILL RECHECK LATER. ASSESSMENT COMPLETED AT 2000 HRS. O2 3LNC. SCATTERED AUDIBLE EXP WHEEZES NOTED TO UPPER LOBES. LUNGS DIMINISHED TO LOWER LOBES. IV PICC TO RAC WITH TPN AT 75CC/HR TO BLUE PORT AND ZOFRAN DRIP AT 4.7CC/HR AND NS AT 50CC/HR GODWNI RED PORT. IV TO LFA OOZING ALBUMIN. DC'D WITH CATHETER INTACT. NUMEROUS BRUISES NOTED TO BILAT ARMS. PT DECLINED SCD'S. RECHECKED BP WITH 155/73 RESULTED. PM MEDS GINVE. PT CURRETNLY RESTING WITH EYES CLOSED. RESP EVEN AND REGULAR. SR UP X2,CALL LIGHT WITHIN REACH.
--- NOTE | 2016-11-12 02:11 | NUR ---
PT RESTING WITH EYES CLOSED. RESP EVEN AND REGULAR. SR UP X2, CALL LIGHT WITHIN REACH.
[2016-11-12 04:00] VITALS: BP 129/57
--- NOTE | 2016-11-12 04:36 | NUR ---
PT RESTING WITH EYES CLOSED. RESP EVEN AND REGULAR. SR UP X2, CALL LIGHT WITHIN REACH.
[2016-11-12 05:48] LABS: BASOPHILS 0 % (0-2); EOSINOPHILS 0 % (0-7); HEMATOCRIT 33.5 % (36.0-48.0); HEMOGLOBIN 11.1 g/dL (12-16); IMMATURE GRANULOCYTES 0.3 % (0-5); LYMPHOCYTES 1.9 % (15-50); MCH 29.9 pg (26.0-34.0); MCHC 33.1 g/dL (31.0-37.0); MCV 90.3 fL (80.0-100.0); MONOCYTES 6.5 % (2-11); NEUTROPHILS 91.3 % (40-80); PLATELET COUNT 259 10x3/uL (130-400); RBC 3.71 10x6/uL (4.00-5.40); WBC 17.3 10x3/uL (4.8-10.8)
[2016-11-12 06:00] LABS: INR 1.21 (0.85-1.17); PROTIME 15.2 SECONDS (11.6-15.0)
[2016-11-12 06:13] LABS: ALBUMIN 2.1 g/dL (3.4-5.0); ANION GAP 15.3 mmol/L (8-16); BILIRUBIN - TOTAL 0.36 mg/dL (0.2-1.3); CALCIUM 8.3 mg/dL (8.5-10.1); CARBON DIOXIDE 17.7 mmol/L (21.0-32.0); CREATININE - SERUM 1.8 mg/dL (0.6-1.3); MAGNESIUM - SERUM 1.5 mg/dL (1.8-2.4); PHOSPHOROUS 3.7 mg/dL (2.5-4.9); PROTEIN - SERUM 4.8 g/dL (6.4-8.2)
[2016-11-12 08:57] VITALS: BP 170/67
--- NOTE | 2016-11-12 11:23 | NUR ---
ASSESSMENT COMPLETED. DENIES ANY NEEDS. RIGHT ARM HAS A PICC LINE WITH TPN AT 75, D5W AT50 AND ZOFRAN AT 4.7.NPO EXCEPT FOR MEDS. WILL MONITOR
--- NOTE | 2016-11-12 11:31 | NUR ---
GONE TO CT.
--- NOTE | 2016-11-12 14:17 | NUR ---
Nutrition follow-up: Chart reviewed. Low sodium, Cl; K has been running high; mg low New TPN order sent to pharmacy RDN following.
[2016-11-12 16:13] VITALS: BP 126/58
--- NOTE | 2016-11-12 19:30 | NUR ---
REPORT RECIEVED. ASSESSMENT COMPLETED. PT RESTING IN BED. WILL CONTINUE TO MONITOR.
--- NOTE | 2016-11-12 21:00 | NUR ---
PT DAUGHTER AT BED SIDE. PT SLEEPING IN BED WILL CONTIUE TO MONITOR.
[2016-11-12 21:16] VITALS: BP 145/65
[2016-11-12 23:55] VITALS: BP 167/68
--- NOTE | 2016-11-13 01:00 | NUR ---
PT DAUGHTER AT BED SIDE. PT SLEEPING IN BED WILL CONTINUE TO MONITOR.
[2016-11-13 03:56] VITALS: BP 151/73
--- NOTE | 2016-11-13 05:15 | NUR ---
PT SLLEPING IN BED WITH DAUGHTER AT BEDSIDE. WILL CONTINUE TO MONITOR.
[2016-11-13 05:57] LABS: BASOPHILS 0 % (0-2); EOSINOPHILS 0 % (0-7); HEMATOCRIT 31.1 % (36.0-48.0); HEMOGLOBIN 10.4 g/dL (12-16); IMMATURE GRANULOCYTES 0.3 % (0-5); LYMPHOCYTES 1.7 % (15-50); MCH 30.1 pg (26.0-34.0); MCHC 33.4 g/dL (31.0-37.0); MCV 89.9 fL (80.0-100.0); MEAN PLATELET VOLUME 10.3 fL (7.4-10.4); MONOCYTES 6.2 % (2-11); NEUTROPHILS 91.8 % (40-80); PLATELET COUNT 302 10x3/uL (130-400); RBC 3.46 10x6/uL (4.00-5.40); RDW 13.2 % (11.5-14.5); WBC 17.6 10x3/uL (4.8-10.8)
[2016-11-13 06:05] LABS: INR 1.4 (0.85-1.17); PROTIME 17.1 SECONDS (11.6-15.0)
[2016-11-13 06:39] LABS: ALBUMIN 2.3 g/dL (3.4-5.0); BILIRUBIN - TOTAL 0.32 mg/dL (0.2-1.3); CALCIUM 8.9 mg/dL (8.5-10.1); CARBON DIOXIDE 16.3 mmol/L (21.0-32.0); CREATININE - SERUM 1.9 mg/dL (0.6-1.3); MAGNESIUM - SERUM 1.5 mg/dL (1.8-2.4); PHOSPHOROUS 3.7 mg/dL (2.5-4.9); POTASSIUM - SERUM 4.3 mmol/L (3.5-5.1); PROTEIN - SERUM 5.3 g/dL (6.4-8.2)
--- NOTE | 2016-11-13 07:10 | NUR ---
AM ROUNDS- PT IN BED, WITH EYES CLOSED. AT BEDSIDE, NAD NOTED, BEDSIDE RAILS X2, CALL LIGHT IN REACH, WILL CONTINUE TO MONITOR.
[2016-11-13 07:54] VITALS: BP 167/67
--- NOTE | 2016-11-13 08:32 | NUR ---
ADMINISTERED AM MEDS. PT IN BED, DENIES ANY NEEDS AT THIS TIME. AT BEDSIDE, CALL LIGHT IN REACH, MARCIANO SANCHEZ, WILL CONTINUE TO MONITOR.
--- NOTE | 2016-11-13 08:56 | NUR ---
Patient Name: VERONICA FERMIN Encounter No: [id number] : 1935 Primary Insurance: MEDICARE A & B Anticipated DC Date: 11-09-2016 Planned Disposition: Home with Home Health External Planned Provider: [facility], [facility] DCP follow-up note: CM NOTIFIED PT IS NOT STABLE FOR DISCHARGE HOME. CM CALLED AND NOTIFIED KAM OF [facility] [phone] AND GEENA OF [facility] AT [phone]. [facility] CAN PROVIDE TPN FOR WEEKEND DISCHARGE IF NEEDED. FOR DISCHARGE, NOTIFY [facility],[phone], WHO WILL NEED EARLY NOTIFICATION POSSIBLE ON DAY OF DISCHARGE IT WILL TAKE AT LEAST THREE HOURS TO MIX AND DELIVER TPN TO THE HOSPITAL FOR DISCHARGE HOME. ALSO NOTIFY [facility], [place] OFFICE, ; FAX DISCHARGE INFORMATION TO [place] AT [phone]. Familia Zaragoza, CASE MANAGEMENT
[2016-11-13 11:50] VITALS: BP 171/65
--- NOTE | 2016-11-13 12:06 | NUR ---
BLOOD SUGAR OF 290, 6UNITS OF HUMALOG GIVEN PER S/S. NAD NOTED, FAMILY AT BEDSIDE, NAD NOTED, WILL CONTINUE TO MONITOR.
--- NOTE | 2016-11-13 15:02 | NUR ---
ADMINISTERED 400MG OF MAG FOR LOW MAG OF 1.6 PER EP. HUNG LIPIDS ORDERED. PT IN BED, DENIES ANY NEEDS AT THIS TIME. CALL LIGHT IN REACH, NAD NOTED, WILL CONTINUE TO MONITOR.
[2016-11-13 16:37] VITALS: BP 139/61
--- NOTE | 2016-11-13 18:16 | NUR ---
BLOOD SUGAR OF 301, 12UNTS OF HUMALOG GIVEN PER S/S. PT IN BED, DENIES ANY NEEDS AT THIS TIME. CALL LIGHT IN REACH, NAD NOTED, WILL CONTINUE TO MONITOR.
[2016-11-13 20:18] VITALS: BP 124/59
--- NOTE | 2016-11-13 21:18 | NUR ---
INITIAL ROUNDS MADE. PT SITTING UP IN BED WATCHING TV. NO NEEDS OR C/O AT THIS TIME. CALL LIGHT IN REACH. WILL CONT TO MONITOR.
--- NOTE | 2016-11-14 00:06 | NUR ---
YARD SWITCH OPERATOR AT BEDSIDE FOR VS. NEEDS ADDRESSED AT THIS TIME. CALL LIGHT IN REACH. WILL CONT TO MONITOR.
[2016-11-14 00:33] VITALS: BP 157/69
[2016-11-14 05:08] VITALS: BP 139/71
[2016-11-14 06:14] LABS: INR 1.41 (0.85-1.17); PROTIME 17.2 SECONDS (11.6-15.0)
[2016-11-14 06:29] LABS: BASOPHILS 0 % (0-2); EOSINOPHILS 0 % (0-7); HEMATOCRIT 31.8 % (36.0-48.0); HEMOGLOBIN 10.6 g/dL (12-16); IMMATURE GRANULOCYTES 0.5 % (0-5); LYMPHOCYTES 2.1 % (15-50); MCH 29.5 pg (26.0-34.0); MCHC 33.3 g/dL (31.0-37.0); MCV 88.6 fL (80.0-100.0); MEAN PLATELET VOLUME 10.3 fL (7.4-10.4); MONOCYTES 7.1 % (2-11); NEUTROPHILS 90.3 % (40-80); PLATELET COUNT 349 10x3/uL (130-400); RBC 3.59 10x6/uL (4.00-5.40); WBC 19.7 10x3/uL (4.8-10.8)
[2016-11-14 06:55] LABS: ALBUMIN 2.5 g/dL (3.4-5.0); ANION GAP 17.9 mmol/L (8-16); BILIRUBIN - TOTAL 0.3 mg/dL (0.2-1.3); CALCIUM 9.2 mg/dL (8.5-10.1); CARBON DIOXIDE 17.5 mmol/L (21.0-32.0); CREATININE - SERUM 2.1 mg/dL (0.6-1.3); MAGNESIUM - SERUM 1.7 mg/dL (1.8-2.4); PHOSPHOROUS 4.4 mg/dL (2.5-4.9); POTASSIUM - SERUM 4.4 mmol/L (3.5-5.1); PROTEIN - SERUM 5.2 g/dL (6.4-8.2)
--- NOTE | 2016-11-14 07:30 | NUR ---
PT IN SEMI FOWLERS POSITION RESTING WITH EYES CLOSED. RESP. EVEN AND UNLABORED. AROUSES TO VERBAL STIMULATION AND DENIES NEEDS AT THIS TIME. EXPLAINED POC TO PT AND PT VERBALIZES UNDERSTANDING.
[2016-11-14 08:00] VITALS: BP 155/82
--- NOTE | 2016-11-14 08:20 | NUR ---
PT IN SEMI FOWLERS POSITION RESTING WITH EYES CLOSED. AROUSES TO VERBAL STIMULATION. PHYSICAL ASSESSMENT DONE, SEE SHIFT ASSESSMENT. 02 VIA NC AT 3L/MIN IN PLACE. CRACKLES NOTED IN UPPER LOBES AND RIGHT MIDLOBE. CLEAR IN OTHER TAMAYO. PT REPORTS A NON-PRODUCTIVE COUGH. S1, S2 AUDIBLE WITH REG. RATE AND RHYTHM. BOWEL SOUNDS HYPOACTIVE X 4. HYPERRESONANT TO PERCUSSION IN RLQ,RUQ,LUQ. PT REPORTS PASSING GAS AND A SMALL AMOUNT OF STOOL LAST PM. 3+ PITTING EDEMA NOTED IN LOWER EXTREMETIES BILATERALLY. PT DENIES PAIN WITH PALPATION IN LOWER LEGS. DIFFICULTY PALPATING PEDAL PULSES BILATERALLY, CAP. REFILL LESS THAN 3 SECONDS IN BOTH FEET. EXPLAINED TO PT THAT SCDS WERE NOT NEEDED FOR HER, PT VERBALIZED UNDERSTANDING AT THIS TIME. NS, ZOFRAN, CLINIMIX INFUSING VIA PUMPS PER ORDER TO PICC LINE IN RIGHT UPPER ARM. ACTUAL SITE IS CLEAN DRY AND INTACT. BELOW ANTICUBITAL REDDENED AREA NOTED ON FOREARM. PT DENIES PAIN AT SITE AND STATES, "IT FEELS BETTER THAN IT DID YESTERDAY". PT DENIES PAIN OR FURTHER NEEDS AT THIS TIME.
[2016-11-14 12:00] VITALS: BP 143/56
--- NOTE | 2016-11-14 13:00 | NUR ---
RAFAEL GAMEZ APN AND DR LBOO IN ROOM ASSESSING PT AND DISCUSSING POC AT THIS TIME. ATTENTION OF RIGHT ARM BROUGHT TO DRY CLEANER HAND ATTENTION.
--- NOTE | 2016-11-14 13:17 | NUR ---
Nutrition follow-up: Remains NPO Chart reviewed; renewed TPN orders to address low Na, Mg RDN following.
--- NOTE | 2016-11-14 13:54 | EC ---
PATIENT:VERONICA FERMIN DATE OF SERVICE: 11/06/16 SEX: F MEDICAL RECORD: [id number] DATE OF : [birth year] LOCATION:D. D.212 AGE OF PATIENT: 81 ADMISSION DATE: 11/06/16 REFERRING PHYSICIAN: INTERPRETING PHYSICIAN: ANDI STRAUSS M.D. ECHOCARDIOGRAM REPORT ECHO CHARGES 4 ECHO COMPLETE CLINICAL DIAGNOSIS: CHF ? ECHOCARDIOGRAPHIC MEASUREMENTS (adult normal given) AC root (d.<3.7cm) 2.9 LV Septum d (<1.2 cm> 1.7 Valve Excursion 1.5 LV Septum (systole) 2.0 Left Atria (s.<4.0cm> 4.3 LVPW d(<1.2cm) 1.7 RV (d.<2.3cm) 3.6 LVPW (sytole) 2.1 LV diastole(<5.6CM) 4.2 MV E-F(>70mm/sec) LV systole 1.8 LVOT Diameter 1.6 MV exc.(>10mm) Est.ejection fraction (50-75%) Pericardial Effusion Y DOPPLER: LVIT A 113 E 94.0 LA RVSP 54.0 LVOT 140 AOP1/2T Asc. Ao 209 RVOT 130 RA PA 162 AV Gradient Peak 18.0 AV Mean 8.0 AV Area 1.3 MV Gradient Peak 8.5 MV Mean 4.0 MV Area COMMENTS: Wax Cutter: Matt AMINOE Marketing Traffic Manager:Pepe Strauss TAPE# PACS DATE OF SERVICE: 11/12/2016 REFERRING PHYSICIAN: Christian Ronquillo DO INDICATION: CHF. DESCRIPTION: Left ventricle demonstrates left ventricular hypertrophy. No wall motion abnormalities are seen. Estimated ejection fraction is 55%. Mitral valve is structurally normal. There is no regurgitation or prolapse seen. Left atrium is normal in size. The aortic valve is trileaflet. There is no stenosis ECHOCARDIOGRAM REPORT [id number] VERONICA FERMIN or regurgitation seen. Leaflets are thickened. Right ventricle is mildly dilated. Tricuspid valve is structurally normal. There is trivial regurgitation seen. Right ventricular systolic pressure is elevated at 54 mmHg. There is physiologic pericardial effusion noted. IMPRESSION: 1. Left ventricular hypertrophy with preserved ejection fraction 55%. 2. Aortic valve sclerosis without stenosis. 3. Trivial tricuspid regurgitation with elevated pulmonary pressures. TRANSINT:[id number] Voice Confirmation ID: [id number] DOCUMENT ID: [id number] ANDI STRAUSS M.D. at 1354 CC: [id number] DICTATION DATE: 11/12/16 155 ELECTRIC BLASTING CAP ASSEMBLER: 11/12/16 2244 ADM IN [facility] [address] [place] [address]
--- NOTE | 2016-11-14 15:20 | NUR ---
PT SITTING UP IN RECLINER. PT REPORTS "FEELING LIKE SOMETHING IS WRONG" PULSE 120, O2 SAT 98% ON 3L/MIN. PT FURTHER EXPLAINS THAT SHE FEELS PRESSURE IN RUQ OF ABDOMEN THAT MAKES HER FEEL LIKE SHE CANT BREATHE WELL. BOWEL SOUNDS HYPOACTIVE X 4. ABDOMEN MORE DISTENDED THAN THIS AM. PT CONTINUES TO DENY TENDERNESS WITH PALPATION. ANA MARÍA RN TO ROOM TO ASSESS ABDOMEN. ANA MARÍA STATES THAT ABDOMEN IS FIRMER AND MORE DISTENDED THAN YESTERDAY ASSESSMENT. WILL CONTINUE TO MONITOR. RAFAEL GAMEZ APN PAGED.
[2016-11-14 15:39] VITALS: BP 136/66
--- NOTE | 2016-11-14 16:24 | NUR ---
PT AMBULATES BACK TO BED AND IN SEMI FOWLERS POSITION. LABORED BREATHING NOTED AT 30 BREATHS PER MIN. O2 SAT 97% ON 3L/MIN. LUNG SOUNDS DIMINISHED ON LEFT SIDE, REMAIN CLEAR ON RIGHT SIDE. HOB ELEVATED. PT DENIES PAIN OR PRESSURE IN CHEST.
--- NOTE | 2016-11-14 16:49 | NUR ---
REPORT OF RIGHT UPPER EXTREMETY US RESULTS CALLED TO DR LUNA. ORDER RECIEVED TO LEAVE PICC LINE IN PLACE AT THIS TIME.
--- NOTE | 2016-11-14 17:09 | NUR ---
LAB NOTIFIED AGAIN OF STAT LAB DRAW NEEDS.
--- NOTE | 2016-11-14 17:15 | NUR ---
PT UP TO RESTROOM TO OBTAIN URINE SPECIMEN. PT MISSES HAT AND CUP AND VOIDS UNKNOWN AMOUNT INTO TOILET. CLEAN [place] HAT PROVIDED AND PT INSTRUCTED TO VOID INTO HAT NEXT TIME. PT BACK SITTIN UP ON SIDE OF BED AND DENIES FURTHER NEEDS AT THIS TIME. RESP. 24 AND LABORED. PT CONTINUES TO REPORT PRESSURE IN UPPER ABDOMEN AND ANXIETY.
[2016-11-14 17:32] LABS: CKMB 0.3 U/L (0.0-3.6); CREATINE KINASE 31 UL (21-215)
[2016-11-14 17:33] LABS: TROPONIN-I < 0.017 ng/mL (0.000-0.060)
--- NOTE | 2016-11-14 18:35 | NUR ---
CVL DRESSING CHANGE DONE PER STERILE TECHNIQUE. PT TOLERATED WELL. INSERTION SITE REMAINS C/D/I.
--- NOTE | 2016-11-14 18:55 | NUR ---
DR HICKEY IN ROOM REVIEWING CHART AND ASSESSING PT. DISCUSSING POC WITH PT AND AT THIS TIME.
--- NOTE | 2016-11-14 19:20 | NUR ---
RECEIVED REPORT, PT VISITING WITH FAMILY, DENIES ANY NEEDS, BED S LOW, SRX2, CALL LIGHT IN REACH, WILL CONTINUE PLAN OF CARE
[2016-11-14 20:04] VITALS: BP 114/64
--- NOTE | 2016-11-14 20:27 | NUR ---
INNER TUBE INSERTER AT BEDSIDE TO OBTAIN VITALS, CALL LIGHT IN REACH. WILL CONTINUE WITH PLAN OF CARE.
[2016-11-14 23:17] LABS: CKMB 4.9 U/L (0.0-3.6); CREATINE KINASE 85 UL (21-215); TROPONIN-I 0.038 ng/mL (0.000-0.060)
[2016-11-15 00:24] VITALS: BP 123/59
[2016-11-15 02:08] LABS: CREATININE - URINE 50.9 mg/dL (30-125); PRO/CRE RATIO URINE 0.6 mg/g
[2016-11-15 04:32] VITALS: BP 146/63
[2016-11-15 05:13] LABS: CALC OSMOLALITY 285 mosm/kg (275-300); CALCIUM 8.8 mg/dL (8.5-10.1); CARBON DIOXIDE 20.6 mmol/L (21.0-32.0); CHLORIDE - SERUM 100 mmol/L (98-107); CKMB 4.4 U/L (0.0-3.6); CREATINE KINASE 74 UL (21-215); CREATININE - SERUM 2.1 mg/dL (0.6-1.3); GLUCOSE 180 mg/dL (74-106); PHOSPHOROUS 4.3 mg/dL (2.5-4.9); SODIUM 131 mmol/L (136-145); TROPONIN-I 0.038 ng/mL (0.000-0.060); UREA NITROGEN 63 mg/dL (7-18); eGFR NON AFRICAN AMERICAN 24 mL/min (90-120)
[2016-11-15 05:14] LABS: POTASSIUM - SERUM 3.7 mmol/L (3.5-5.1)
--- NOTE | 2016-11-15 07:30 | NUR ---
INTRODUCED MYSELF TO PT PRIMARY RN FOR TODAYS SHIFT. PT IS A&O SITTING UP IN BED WITH AT BEDSIDE. RR SHALLOW BUT NONLABORED WITH NC @3L IN PLACE. SHIFT ASSESSMENT COMPLETED. PT HAS HAS R.UPPER ARM PICC LINE WITH ZOFRAN DRIP INFUSING ALONG WITH TPN @75ML/HR. PTS R.FA IS SWOLLEN AND RED BUT SHE DENIES ANY PAIN AT SITE. US OF ARM DID SHOW A CLOT SO WE WILL HAVE THE PICC LINE REMOVED AND LOCATION CHANGED. BREATH SOUNDS ARE CTA THROUGHOUT ALL LOBES EXCEPT LEFT LOWER LOBE IS DIMINISHED. BS ARE ACTIVE X4 WITH SLIGHT DISTENTION BUT PT ALSO OBESE. ABDOMEN FIRM BUT NONTENDER. PT DENIES ANY CURRENT NEEDS AT THIS TIME. CL IN REACH, BED IN LOWEST, SIDE RAILS X2. WILL CPOC.
--- NOTE | 2016-11-15 10:02 | NUR ---
CX OF URINE NEEDED. INSTRUCTED PT ON SPECIMEN COLLECTION PROCESS AND CC AND WILL TRY TO OBTAIN SHORTLY. PT VERBALIZED UNDERSTANDING, COLLECTION WAS ORDERED A WILLIAMSON CATCH HOWEVER PT DOESNT HAVE A WILLIAMSON AND IS REFUSING ONE R/T HER BEING AMBULATORY AND PUT AT RISK FOR INFECTION. WILL CTM.
--- NOTE | 2016-11-15 10:34 | NUR ---
Nutrition follow-up: Chart reviewed. Pt continues to be fluid overload Will decrease TPN rate to 60 ml/hr. RDN following.
--- NOTE | 2016-11-15 10:39 | NUR ---
Patient Name: VERONICA FERMIN Encounter No: [id number] : 1935 Primary Insurance: MEDICARE A & B Anticipated DC Date: 11-09-2016 Planned Disposition: Home with Home Health External Planned Provider: [facility] / [facility] DCP follow-up note: CM CALLED AND NOTIFIED KAM OF [facility] [phone] AND GEENA OF [facility] AT [phone] THAT PT IS NOT YET STABLE FOR DISCHARGE. [facility] CAN PROVIDE TPN FOR WEEKEND DISCHARGE IF NEEDED. BOTH [facility] AND [facility] CONTINUE TO HOLD REFERRALS FOR HOME HEALTH TPN INFUSION. FOR DISCHARGE, NOTIFY [facility],[phone], WHO WILL NEED EARLY NOTIFICATION POSSIBLE ON DAY OF DISCHARGE IT WILL TAKE AT LEAST THREE HOURS TO MIX AND DELIVER TPN TO THE HOSPITAL FOR DISCHARGE HOME. ALSO NOTIFY [facility], [place] OFFICE, ; FAX DISCHARGE INFORMATION TO [place] AT [phone]. Familia Zaragoza, CASE MANAGEMENT
--- NOTE | 2016-11-15 11:17 | NUR ---
CHANGED OUT ALL OF PTS IV TUBING R/T NOT BEING DATED AND REQUIRING A CHANGED PER POLICY [id number]. INITIATED PTS IVPB ZOSYN INFUSING OVER 4 HOURS VIA R.UPPER ARM PICC ACCESS VIA WHITE LUMEN. INITIATED AND CHANGED OUT PTS TPN BAG ALONG WITH TUBING IT IS TO BE CHANGED [id number] WITH MICRO FILTER IN PLACE, RATE WAS DECREASED TO 60ML/HR FROM THE INITIAL 75ML/HR AND INFUSING VIA RED LUMEN OF DOUBLE LUMEN PICC LINE. PICC RED LUMEN DRAWS BACK BLOOD EASILY AND FLUSHES, WHITE LUMEN HAS NO BLOOD RETURN. BIOPATCH IN PLACE AND DRSG CDI. PTS R.FA STILL VERY SWOLLEN AND IS NOW WEEPING. PROPPED UP R.ARM ON TWO PILLOWS TO PROMOTE BLOOD FLOW AND HELP REDUCE SWELLING. PT IS HOPING TO GET TO EAT TODAY AND WILL ASK TO TRY WORKING TOWARDS THAT. PROPPED BILAT FEET ON PILLOW TO HELP REDUCE SWELLING WELL. PT DENIES ANY FURTHER NEEDS AT THIS TIME. CL IN REACH, BED IN LOWEST, SIDE RAILS X2. WILL CPOC.
[2016-11-15 12:02] VITALS: BP 130/55
[2016-11-15 15:52] VITALS: BP 133/61
--- NOTE | 2016-11-15 18:21 | NUR ---
STRICT I&O COMPLETED. PT ONLY VOIDED 500ML TOTAL FROM MY 7A-7P SHIFT. I PERSONALLY MADE SURE THAT THIS WAS THE ONLY URINE AND EACH TIME IT WAS MEASURED.
[2016-11-15 19:00] VITALS: BP 156/58
[2016-11-16] VITALS: BP 138/69
[2016-11-16 04:00] VITALS: BP 122/65
[2016-11-16 06:29] LABS: HEMATOCRIT 31.6 % (36.0-48.0); MCH 30.7 pg (26.0-34.0); MCHC 34.8 g/dL (31.0-37.0); MCV 88.3 fL (80.0-100.0); MEAN PLATELET VOLUME 10.1 fL (7.4-10.4); PLATELET COUNT 465 10x3/uL (130-400); RBC 3.58 10x6/uL (4.00-5.40); RDW 13.2 % (11.5-14.5); WBC 21.3 10x3/uL (4.8-10.8)
[2016-11-16 06:49] LABS: INR 1.71 (0.85-1.17)
[2016-11-16 06:52] LABS: ANION GAP 13.6 mmol/L (8-16); CALCIUM 8.6 mg/dL (8.5-10.1); CARBON DIOXIDE 18.1 mmol/L (21.0-32.0); POTASSIUM - SERUM 3.7 mmol/L (3.5-5.1)
[2016-11-16 06:58] LABS: CREATININE - SERUM 2.8 mg/dL (0.6-1.3)
[2016-11-16 07:25] LABS: LYMPHOCYTES 3 % (15-50); MONOCYTES 6 % (2-11); NEUTROPHILS 86 % (40-80); PLATELET ESTIMATE INCREASED
[2016-11-16 08:44] VITALS: BP 117/56
--- NOTE | 2016-11-16 09:00 | NUR ---
MORNING MED PASS COMPLETED AND SHIFT ASSESSMENT DONE. PTS R.ARM HAS WENT DOWN QUITE A BIT SINCE YESTERDAY SINCE RIGO HAD IT PROPPED UP ON A PILLOW. STILL SCANT AMOUNT OF WEEPING EDEMA NOTED AND THAT FA IS STILL BRIGHT RED IN COLOR. PULSES ARE PALPABLE IN THAT ARM STILL THOUGH. PT HAS A R.UPPER ARM PICC LINE DOUBLE LUMEN WITH TPN INFUSING @60ML/HR AND NS @15ML/HR WITH INTERMITT. ANBX INFUSING VIA THE RED LUMEN. DRSG CDI AND BIOPATCH IN PLACE, SWAB CAPS IN USE WELL. PTS ABODMEN STILL SLIGHTLY DISTENDED BUT MOSTLY BACK TO NORMAL FOR HER SHE STATES. PT STATES SHE IS PASSING GAS AND DENIES ANY TENDERNESS OR PAIN. BS ARE ACTIVE X4. BILAT LE STILL PITTING EDEMA +3 ELEVATED BOTH ON PILLOWS TO HELP REDUCE SWELLING. PT STATES SHE IS BREATHING BETTER AND DENIES SOB WITH NC@3L IN PLACE. BREATH SOUNDS CTA THROUGHOUT RIGHT LOBES BUT DIMINISHED ON THE LEFT SIDE. STILL NEED PTS URINE CX AND BROUGHT HER A NEW SPECIMEN CUP AND WENT OVER CLEAN CATCH STEPS AND PT VERBALIZED UNDERSTANDING. PT SITTING UP IN BED ATTEMPTING TO EAT BREAKFAST AND DENIES ANY FURTHER NEEDS AT THIS TIME. CL IN REACH, BED IN LOWEST, SIDE RAILS X2. WILL CPOC.
[2016-11-16 12:00] VITALS: BP 135/54
--- NOTE | 2016-11-16 13:18 | NUR ---
Nutrition follow-up: Renal now managing TPN. Diet advanced to full liquids; pt going slow with eating; not having any nausea today. Labs reviewed RDN following.
--- NOTE | 2016-11-16 15:22 | NUR ---
INSERTED 16FR WILLIAMSON CATHETER USING STERILE TECHNIQUE. COLLECTED CULTURE FOR URINE ORDERED ALONG WITH C.DIFF SPECIMEN AND SENT TO LAB. ATTACHED AND SECURED STAT LOCK TO L.INNER THIGH AND HUNG COLLECTION BAG TO GRAVITY. PT TOLERATED FINE AND DENIED ANY PAIN WITH INSERTION. ASSISTED PT UP IN BED AND PROPPED HER R.ARM UP ON A PILLOW AND BILAT LEGS ON A PILLOW FOR COMFORT. PT VOICED THANKS AND DENIES ANY FURTHER NEEDS AT THIS TIME. CL IN REACH, BED IN LOWEST, SIDE RAILS X2. WILL CPOC.
--- NOTE | 2016-11-16 15:46 | NUR ---
CALLED VASCULAR NURSE ABOUT REMOVING R.UPPER ARM PICC AND PLACING NEW ONE TO THE LUE R/T THE CLOT THAT WAS FOUND IN THE RUE. BEST [place] RN. HERE NOW AND READY FOR PLACEMENT. CONSENTS SIGNED AND OBTAINED IN THE CHART.
--- NOTE | 2016-11-16 17:06 | NUR ---
PICC WAS PLACED IN LUE AND UPON REVIEWING XRAY THE DISTAL TIP OF MAYI PICC LINE TERMINATES IN THE LEFT BRACHIOCEPHALIC VEIN. PT IS STILL SUPPOSE TO HAVE TPN WHICH IS NOT TO BE ADMINISTERED UNLESS IN A CVL. PAGED TO SEE IF HE WANTS TO CHANGE THE TPN WHERE IT CAN BE GIVEN PERIPHERALLY OR IF IT CAN BE DISCONTINUED SINCE PT IS HOLDING DOWN FLD.
--- NOTE | 2016-11-16 19:40 | NUR ---
ASSESSMENT COMPELTE, A&O. RESPERTIONS UNLABORED ON 02 AT 3 LITER VIA NC. DRSG TO RIGHT UPPER ARM FROM PICC REMOVAL C/D/I. LEFT ARM PICC WITH LIPIDS INFUSING, DISCUSSED WITH PT AND FAMILY MEMBER AT BED SIDE ABOUT TPN AND ZOFRAN DRIP THAT WAS ORDERED, BOTH PT AND FAMILY MEMBER STATED THAT UPON THE ADVICE OF TISH GEE RN, ( DAY SHIFT NURSE) EVEN THOUGH THE RADIOLOGIST STATED THAT IT WAS OK TO USE, UNLESS DR LOBO STATES THAT ITS OK SHE WILL NOT BE TAKING THE MVI DRIP. WILLIAMSON DRAINING TO GRAVITY, ABOUT 100 CC FO CLEAR YELLOW URINE NOTED IN COLLECTION BAG. BILATERAL LEGS SWOLLEN AND DISCOLORED. PT DENIES PAIN OR NEEDS AT THIS TIME, DIET COLA GIVEN AT PT REQUEST. WILL CONT TO MONITOR.
[2016-11-16 20:00] VITALS: BP 110/63
--- NOTE | 2016-11-16 21:14 | NUR ---
HS MEDS GIVEN WITH FRESH ICE WATER. PT DENIES PAIN OR NEEDS, DAUGHTER AT BED SIDE, BED LOW, CL IN REACH.
--- NOTE | 2016-11-16 21:25 | NUR ---
RECHECKED BP, 110/65, HR 125. HUNG SIGN ABOVE BED AND ON DOOR TO RESERVE RIGHT ARM DUE TO BLOOD CLOT. SPOKE WITH PT ABOUT HER HOME MEDICATIONS AND HOW SHE HASNT HAD THEM SINCE SHE WAS ADMITTED AND NOW THAT SHE IS EATING AND DRINKING MORE THAT SHE MAY NEED TO SPEAK WITH HER DOCTOR ABOUT GETTING THEM CONTINUED.
--- NOTE | 2016-11-16 23:30 | NUR ---
RECEIVED REPORT AND ASSUMED PT CARE AT THIS TIME. PT C/O WILLIAMSON CAUSING HER GREAT DISCOMFORT. ONLY APPROX 50 ML IN BSD BAG AT THIS TIME. PT INSISTS WILLIAMSON BE REMOVED. 10 CC WITHDRAWN FROM BULB AND WILLIAMSON REMOVED PER PT AND HER DAUGHTERS REQUEST. WILL CONT TO MONITOR.
--- NOTE | 2016-11-17 02:30 | NUR ---
PT RESTING WELL WITHOUT C/O OR DISTRESS NOTEED. DAUGHTER REMAINS AT THE BEDSIDE. WILL CONT TO MONITOR.
[2016-11-17 04:00] VITALS: BP 115/62
[2016-11-17 05:34] LABS: BASOPHILS 0 % (0-2); EOSINOPHILS 0.1 % (0-7); HEMATOCRIT 31.1 % (36.0-48.0); HEMOGLOBIN 10.6 g/dL (12-16); IMMATURE GRANULOCYTES 1.2 % (0-5); LYMPHOCYTES 3.4 % (15-50); MCH 30.1 pg (26.0-34.0); MCHC 34.1 g/dL (31.0-37.0); MCV 88.4 fL (80.0-100.0); MEAN PLATELET VOLUME 9.9 fL (7.4-10.4); MONOCYTES 10.9 % (2-11); NEUTROPHILS 84.4 % (40-80); PLATELET COUNT 527 10x3/uL (130-400); RBC 3.52 10x6/uL (4.00-5.40); RDW 13.5 % (11.5-14.5); WBC 23.4 10x3/uL (4.8-10.8)
[2016-11-17 05:38] LABS: INR 1.76 (0.85-1.17); PROTIME 20.5 SECONDS (11.6-15.0)
[2016-11-17 05:41] LABS: ANION GAP 15.5 mmol/L (8-16); CALCIUM 8.7 mg/dL (8.5-10.1); CARBON DIOXIDE 19.2 mmol/L (21.0-32.0); CREATININE - SERUM 3.5 mg/dL (0.6-1.3); POTASSIUM - SERUM 3.7 mmol/L (3.5-5.1)
[2016-11-17 08:00] VITALS: BP 142/75
--- NOTE | 2016-11-17 08:03 | NUR ---
ASSESSMENT COMPLETED. ALERT AND ORIENTED. 02 3 L/M PER NC. PICC LINE TO LEFT ARM. UP WITH ASSIST. NO TELEMERTY. DENIES ANY NEEDS. CALL LIGHT IN REACH WITH SR UP. FAMILY AT BEDSIDE
--- NOTE | 2016-11-17 11:15 | NUR ---
PT REFUSED TO USE PICC LINE. SO ZOFRZN DRIP AND TPN NOT HUNG,
[2016-11-17 12:00] VITALS: BP 95/63
--- NOTE | 2016-11-17 13:24 | NUR ---
PICC LINE OK TO USE PER DR. CHAND. D5NS STARTED
--- NOTE | 2016-11-17 15:14 | NUR ---
RESTING QUIETLY RESP UNLABORED NAD NOTED
[2016-11-17 16:00] VITALS: BP 93/44
--- NOTE | 2016-11-17 16:53 | NUR ---
LYING QUIETLY. FAMILY AT BEDSIDE.DENIES ANY NEEDS. AWAITING DINNER TRAY. WILL MONITOR
[2016-11-17 20:00] VITALS: BP 103/53
--- NOTE | 2016-11-17 20:00 | NUR ---
PT RESTING IN BED WITH FAMILY X 1 AT BEDSIDE. ALERT/ORIENTED. PICC TO CROW WITH D5NS @ 50ML/HR. ZOFRAN CONTINUOUS IV IS AVAILABLE, PT DECLINES AND TPN IV IS AVAILABLE IF PT DOESN'T EAT, WHICH SHE IS EATING SMALL AMOUNTS. O2 @ 3L/NC WITH SHALLOW/NONLABORED RESPIRATIONS. SEE SHIFT ASSESSMENT. CPOC.
--- NOTE | 2016-11-17 21:52 | NUR ---
PT TOLERATING DRY SALTINE CRACKERS.
--- NOTE | 2016-11-18 02:14 | NUR ---
RESTING WITH NO DISTRESS. IVF INFUSING TO LEFT PICC. O2 @ 3L/NC. CLEAN /DRY AND NO NEEDS VOICED. CPOC. CALL LIGHT IN REACH.
--- NOTE | 2016-11-18 02:56 | NUR ---
PT'S DAUGHTER HAD ASSISTED PT UP AND TO THE BATHROOM WHERE SHE HAD A SMALL BOWEL MOVEMENT WITH A SMALL AMOUNT OF URINE. PT WAS OUT OF BREATH, LAYING HALF WAY ACROSS THE BED. STAFF AND PT'S DAUGHTER PULLED PT UP IN BED, PULLED UP HER DEPENDS. PT KEEPING HER WASH BASIN AT HER SIDE IN CASE OF NAUSEA. ENCOURAGED PT TO LET NURSE RESTART HER ZOFRAN DRIP FOR HER ONGOING NAUSEA. PT AGREED AND ZOFRAN AT 4.7ML/HR NOW INFUSING. PURPLE PORT OF PICC LINE HAD LAST BEEN USED TO INFUSE ALBUMIN AND NOW REQUIRED EXTENSIVE FLUSHING TO MAINTAIN LINE PATENCY. PT NOW RESTING IN BED, HOB 30 DEGREES. IVF D5NS @ 50ML/HR +ZOFRAN @ 4.7ML/HR BOTH INFUSING TO RED PORT OF PICC LINE. CPOC. DAUGHTER AT BEDSIDE. EMCOURAGED TO CALL FOR ASSISTANCE THE NEXT TIME PATIENT WANTS TO GO TO THE BATHROOM. CPOC.
[2016-11-18 04:00] VITALS: BP 102/69
--- NOTE | 2016-11-18 07:52 | NUR ---
ASSESSMENT COMPLETED. LYING QUIETLY WITH FAMILY AT BEDSIDE. 02 AT 3 L/M PER NC. LEFT UPPER ARM PICC LINE WITHD DRNS AT 50 INFUSING WELL. RESERVE RIGHT ARM. DENIES ANY NEEDS. CALL LIGHT IN REACH WITH SR UP. WILL MONITOR
[2016-11-18 07:59] LABS: BASOPHILS 0 % (0-2); EOSINOPHILS 0.1 % (0-7); HEMATOCRIT 29.7 % (36.0-48.0); LYMPHOCYTES 2.2 % (15-50); MCH 29.9 pg (26.0-34.0); MCHC 33.7 g/dL (31.0-37.0); MCV 88.7 fL (80.0-100.0); MEAN PLATELET VOLUME 9.6 fL (7.4-10.4); MONOCYTES 10.7 % (2-11); PLATELET COUNT 477 10x3/uL (130-400); RBC 3.35 10x6/uL (4.00-5.40); RDW 13.4 % (11.5-14.5); WBC 22.4 10x3/uL (4.8-10.8)
[2016-11-18 08:00] VITALS: BP 97/45
[2016-11-18 08:27] LABS: INR 2.59 (0.85-1.17)
[2016-11-18 09:34] LABS: ALBUMIN 2.5 g/dL (3.4-5.0); ANION GAP 17.7 mmol/L (8-16); BILIRUBIN - TOTAL 0.36 mg/dL (0.2-1.3); CALCIUM 8.6 mg/dL (8.5-10.1); CARBON DIOXIDE 17.2 mmol/L (21.0-32.0); MAGNESIUM - SERUM 2.2 mg/dL (1.8-2.4); PHOSPHOROUS 6.4 mg/dL (2.5-4.9); POTASSIUM - SERUM 3.9 mmol/L (3.5-5.1); PROTEIN - SERUM 5.1 g/dL (6.4-8.2)
[2016-11-18 09:38] LABS: CREATININE - SERUM 4.4 mg/dL (0.6-1.3)
[2016-11-18 11:35] VITALS: BP 97/47
[2016-11-18 15:43] VITALS: BP 101/47
--- NOTE | 2016-11-18 17:48 | NUR ---
LYING QUIETLY. FAMILY AT BEDSIDE. CALL LIGHT IN REACH. DENIES ANY NEEDS. CALL LIGHT IN REEACH. WILL MONITOR
[2016-11-18 20:00] VITALS: BP 98/54
--- NOTE | 2016-11-18 20:00 | NUR ---
PT RESTING IN BED WITH FAMILY X 1 AT BEDSIDE. ALERT/ORIENTED. RESERVE RIGHT ARM FOR BLOOD CLOTS X 2. LEFT ARM PICC WITH D5NS @ 50ML/HR + TPN @ 60ML/HR AND ZOFRAN DRIP AT 4.7ML/HR. O2 @ 3L/NC WITH NONLABORED RESPIRATIONS. ABDOMEN LARGE AND DISTENDED. NO NAUSEA AT THIS TIME. SEE ASSESSMENT. CPOC.
--- NOTE | 2016-11-18 23:15 | NUR ---
DR HICKEY ON UNIT ROUNDING ON PATIENT.
[2016-11-19 04:00] VITALS: BP 116/65
[2016-11-19 04:59] LABS: BASOPHILS 0 % (0-2); EOSINOPHILS 0.7 % (0-7); HEMATOCRIT 31.4 % (36.0-48.0); HEMOGLOBIN 10.9 g/dL (12-16); IMMATURE GRANULOCYTES 0.9 % (0-5); LYMPHOCYTES 4.5 % (15-50); MCH 30.5 pg (26.0-34.0); MCHC 34.7 g/dL (31.0-37.0); MEAN PLATELET VOLUME 10.2 fL (7.4-10.4); MONOCYTES 7.6 % (2-11); NEUTROPHILS 86.3 % (40-80); PLATELET COUNT 519 10x3/uL (130-400); RBC 3.57 10x6/uL (4.00-5.40); RDW 13.5 % (11.5-14.5); WBC 23.8 10x3/uL (4.8-10.8)
[2016-11-19 05:20] LABS: ALBUMIN 2.4 g/dL (3.4-5.0); ANION GAP 19.6 mmol/L (8-16); BILIRUBIN - TOTAL 0.29 mg/dL (0.2-1.3); CALCIUM 8.3 mg/dL (8.5-10.1); MAGNESIUM - SERUM 2.3 mg/dL (1.8-2.4); PHOSPHOROUS 5.6 mg/dL (2.5-4.9); POTASSIUM - SERUM 3.6 mmol/L (3.5-5.1); PROTEIN - SERUM 5.3 g/dL (6.4-8.2)
--- NOTE | 2016-11-19 06:02 | NUR ---
IV ALBUMIN ADINISTERED. BLOODSUGAR PER LAB 203. SLIDING SCALE HUMALOG 8 UNITS GIVEN. PT'S NOW HERE. CALL LIGHT IN REACH.
--- NOTE | 2016-11-19 08:31 | NUR ---
ASSESSMENT DONE. DENIES NEEDS.
[2016-11-19 08:40] VITALS: BP 127/69
--- NOTE | 2016-11-19 09:51 | NUR ---
Patient Name: VERONICA FERMIN Encounter No: [id number] : 1935 Primary Insurance: MEDICARE A & B Anticipated DC Date: 11-09-2016 Planned Disposition: Home with Home Health External Planned Provider: [facility] WITH [facility] DCP follow-up note: CM CALLED AND NOTIFIED ON [place] PHARMACIST OF [facility] [phone] AND GEENA OF [facility] AT [phone] THAT PT IS NOT YET STABLE FOR DISCHARGE. [facility] CAN PROVIDE TPN FOR WEEKEND DISCHARGE IF NEEDED. BOTH [facility] AND [facility] CONTINUE TO HOLD REFERRALS FOR HOME HEALTH TPN INFUSION. FOR DISCHARGE, NOTIFY [facility],[phone], WHO WILL NEED EARLY NOTIFICATION POSSIBLE ON DAY OF DISCHARGE IT WILL TAKE AT LEAST THREE HOURS TO MIX AND DELIVER TPN TO THE HOSPITAL FOR DISCHARGE HOME. ALSO NOTIFY [facility], [place] OFFICE, ; FAX DISCHARGE INFORMATION TO [place] AT [phone]. Familia Zaragoza, CASE MANAGEMENT
--- NOTE | 2016-11-19 10:39 | NUR ---
RESTS WITH EYES CLOSED. IV PATENT. CALL LIGHT IN REACH. WILL CONT. PLAN OF CARE.
[2016-11-19 12:39] VITALS: BP 111/57
[2016-11-19 13:56] LABS: INR 2.29 (0.85-1.17); PROTIME 25.3 SECONDS (11.6-15.0)
[2016-11-19 16:51] VITALS: BP 110/47
--- NOTE | 2016-11-19 17:26 | NUR ---
FAMILY AT SIDE. WITHOUT CHANGES OR DISTRESS NOTED AT THIS TIME. DENIES NEEDED.
[2016-11-19 19:00] VITALS: BP 99/59
--- NOTE | 2016-11-19 19:20 | NUR ---
ASSESSMENT COMPLETE. S1S2; DISTANT. RR SHALLOW; SOB; WHEEZE NOTED BILATERALLY ON IN UPPER AND MID LOBES; AND DIMISHED BILATERALLY IN MID AND LOWER LOBES. GENERALIZED EDEMA; DEPENDENT AND PITTING EDEMA +3 NOTED BILATERALLY ON LOWER EXTERMITIES. BILATERALLY FEET/ANKLE EDEMA +3. BRUISING NOTED TO UPPER EXTREMITIES X2. RADIAL PULSES PALPATED; PEDAL PULSES +1; (HARD TO PALPATE DUE TO EDEMA). 3L VIA NC. PT C/O NAUSEA WITH MOVEMENT.
--- NOTE | 2016-11-19 19:50 | NUR ---
PT ASSISTED TO REPOSITION FOR COMFORT. DENIES ANY FURTHER NEEDS AT THIS TIME.
[2016-11-20] VITALS: BP 112/59
[2016-11-20 04:00] VITALS: BP 108/61
--- NOTE | 2016-11-20 05:34 | NUR ---
PT AROUSES EASILY TO SPEECH. DENIES ANY NEEDS AT THIS TIME. TPN ON HOLD; FLUSHING FOR LAB DRAW.
[2016-11-20 06:08] LABS: ALBUMIN 2.4 g/dL (3.4-5.0); BILIRUBIN - TOTAL 0.3 mg/dL (0.2-1.3); CALCIUM 8.4 mg/dL (8.5-10.1); CARBON DIOXIDE 15.4 mmol/L (21.0-32.0); CREATININE - SERUM 5.6 mg/dL (0.6-1.3); MAGNESIUM - SERUM 2.3 mg/dL (1.8-2.4); PHOSPHOROUS 5.7 mg/dL (2.5-4.9); POTASSIUM - SERUM 3.4 mmol/L (3.5-5.1); PROTEIN - SERUM 5.1 g/dL (6.4-8.2)
[2016-11-20 06:40] LABS: PROTIME 20.7 SECONDS (11.6-15.0)
[2016-11-20 06:44] LABS: HEMATOCRIT 29.3 % (36.0-48.0); MCHC 34.1 g/dL (31.0-37.0); MEAN PLATELET VOLUME 9.7 fL (7.4-10.4); PLATELET COUNT 501 10x3/uL (130-400); RBC 3.33 10x6/uL (4.00-5.40); RDW 13.7 % (11.5-14.5); WBC 28.7 10x3/uL (4.8-10.8)
[2016-11-20 06:45] LABS: INR 1.79 (0.85-1.17)
[2016-11-20 06:58] LABS: LYMPHOCYTES 6 % (15-50); MONOCYTES 1 % (2-11); NEUTROPHILS 93 % (40-80)
[2016-11-20 07:24] LABS: PLATELET ESTIMATE INCREASED; PLATELET MORPHOLOGY NORMAL PLT MORPH
--- NOTE | 2016-11-20 08:11 | NUR ---
ASSESSMENT DONE. DENIES NEEDS
[2016-11-20 08:23] VITALS: BP 110/62
--- NOTE | 2016-11-20 10:30 | NUR ---
RESTS WITH EYES CLOSED. IV PATENT. AT BS. WILL CONT. PLAN OF CARE.
[2016-11-20 12:40] VITALS: BP 123/62
[2016-11-20 16:15] VITALS: BP 121/82
--- NOTE | 2016-11-20 17:06 | NUR ---
WITHOUT CHANGES OR DISTRESS NOTED AT THIS TIME. DENIES NEES.
[2016-11-20 19:00] VITALS: BP 98/46
--- NOTE | 2016-11-20 19:40 | NUR ---
RESUMED CARE OF PT, LYING IN BED RESPIRATIONS EVEN AND UNLABORED ON 3LPM VIA NC. FAMILY AT BEDSIDE, PLAN OF CARE DISCUSSED. LEFT PICC INFUSING TPN @ 60, ZOFRAN @ 4.7, AND D5NS @ 5. NO NEEDS VOICED AT THIS TIME. WILL CONTINUE TO MONITOR. SEE NURSE ASSESSMENT.
--- NOTE | 2016-11-20 22:21 | NUR ---
NIGHT MEDS GIVEN, DID NOT TOLERATE SODIUM BICARB PO. PRN DOSE OF ZOFRAN ADMINISTERED AND LINENS CHANGED. WILL CONTINUE TO MONITOR.
[2016-11-21] VITALS (22 sets, daily range): BP systolic 88–137; BP diastolic 30–90
[2016-11-21 05:53] LABS: INR 1.34 (0.85-1.17); PROTIME 16.4 SECONDS (11.6-15.0)
[2016-11-21 06:01] LABS: BASOPHILS 0 % (0-2); EOSINOPHILS 0.1 % (0-7); HEMATOCRIT 29.6 % (36.0-48.0); IMMATURE GRANULOCYTES 0.8 % (0-5); LYMPHOCYTES 3.8 % (15-50); MCH 29.8 pg (26.0-34.0); MCHC 33.8 g/dL (31.0-37.0); MCV 88.1 fL (80.0-100.0); MEAN PLATELET VOLUME 10.1 fL (7.4-10.4); MONOCYTES 5.7 % (2-11); NEUTROPHILS 89.6 % (40-80); PLATELET COUNT 535 10x3/uL (130-400); RBC 3.36 10x6/uL (4.00-5.40); WBC 31.4 10x3/uL (4.8-10.8)
[2016-11-21 06:06] LABS: ALBUMIN 2.4 g/dL (3.4-5.0); BILIRUBIN - TOTAL 0.3 mg/dL (0.2-1.3); CALCIUM 8.6 mg/dL (8.5-10.1); CREATININE - SERUM 6.2 mg/dL (0.6-1.3); MAGNESIUM - SERUM 2.4 mg/dL (1.8-2.4); PHOSPHOROUS 5.8 mg/dL (2.5-4.9); PROTEIN - SERUM 4.8 g/dL (6.4-8.2)
--- NOTE | 2016-11-21 06:47 | NUR ---
NO CHANGES FROM PREVIOUS ASSESSMENT, CALL LIGHT IN REACH.
--- NOTE | 2016-11-21 07:25 | NUR ---
PT IN SEMI FOWLERS POSITION RESTING WITH EYES CLOSED, RESP. EVEN AND UNLABORED. FAMILY AT BEDSIDE. FAMILY STATES THAT SHE HAD A "ROUGH NIGHT" LAST NIGHT DUE TO VOMITING AND NAUSEA. PT AROUSES AND DENIES NEEDS AT THIS TIME.
--- NOTE | 2016-11-21 08:55 | NUR ---
PT IN SEMI FOWLERS POSITION, FAMILY AT BEDSIDE. O2 VIA NC AT 3L/MIN. LUNG SOUNDS CLEAR TO AUSCULTATION, HOWEVER PT IS USING ACCESSORY MUSCLES TO BREATHE AND PURSED LIP BREATHING NOTED. PT REPORTS SOB. S1,S2 AUDIBLE AND REGULAR. BOWEL SOUNDS ACTIVE X 4, ABD DISTENDED BUT SOFT TO PALPATION. HYPERRESONANT SOUNDS NOTED IN ALL FOUR QUADRANTS ON PERCUSSION. PT DENIES HAVING A BM "IN A LONG TIME" AND DENIES PASSING GAS. PT REPORTS NAUSEA AND HAS BEEN VOMITING THROUGHOUT THE NIGHT PER REPORT. PT UNABLE TO RECALL APPEARANCE OF EMESIS. WILL CONTINUE TO MONITOR. 3+ PITTING EDEMA NOTED IN LOWER EXTREMETIES BILATERALLY. PULSES 2+ IN UPPER AND LOWER EXT. BILATERALLY. CAP. REFILL GREATER THAN 3 SEC IN UPPER EXTREMETIES. PT STATES THAT [employer] CATHETER WAS REMOVED THE DAY IT WAS INSERTED PER HER REQUESTS DUE TO DISCOMFORT. PT DENIES VOIDING SINCE REMOVAL BUT FAMILY REPORTS SMALL VOIDS THE FIRST FEW DAYS AFTERWARDS. PT INSTRUCTED THAT URINE COLLECTION IS ORDERED AND TO NOTIFY RN IF URGE TO VOID IS FELT. PT VERBALIZES UNDERSTANDING. PICC LINE NOTED IN LEFT UPPER ARM. OLD BLOOD NOTED UNDER DRESSING. WILL CHANGE TO DAY. D5NS INFUSING AT 5ML/HR, ZOFRAN INFUSING AT 4.7ML/HR, AND CLINIMIX INFUSING AT 60ML/HR ALL THROUGH PUMP. PT DENIES PAIN OR FURTHER NEEDS AT THIS TIME. AM MEDS GIVEN SIVP. SEE EMAR FOR DETAILS.
--- NOTE | 2016-11-21 11:19 | NUR ---
PT OFF FLOOR VIA BED FOR PROCEDURE.
--- NOTE | 2016-11-21 12:15 | NUR ---
PT BACK TO ROOM VIA BED. BREATH SOUNDS CLEAR. NO USE OF ACCESSORY MUSCLES AT THIS TIME. O2SAT 95% ON 3L/MIN NC. PT RESTING WITH EYES CLOSED. AROUSES TO VERBAL STIMULATION AND DENIES PAIN OR NEEDS. RECEIVED REPORT FROM RR. WILL CONTINUE TO MONITOR.
[2016-11-21 12:58] LABS: PROTEIN - BODY FLUID 2.8 G/DL
[2016-11-21 13:12] LABS: LYMPH - BF 43 %; MACROPHAGES BF 21 %; NEUT - BF 32 %
--- NOTE | 2016-11-21 13:12 | NUR ---
DR LOBO AT BEDSIDE FOR DIALYSIS ACCESS PLACEMENT VIA STERILE PROCEDURE.
[2016-11-21 13:14] LABS: MESOTHELIALS BF 4 %
--- NOTE | 2016-11-21 14:50 | NUR ---
AUTOMATIC VS MACHINE READING 90/39 ON LEFT FA. MANUAL BP 90/58 IN LEFT FA. PT AAOX4 AND STATES, "I CAN BREATHE MUCH BETTER THAN I COULD BEFORE THE PROCEDURE". BANDAGE NOTED ON LEFT WRIST, REMOVED PER PT REQUEST. SKIN TEAR NOTED AND RECOVERED WITH GAUZE AND PAPER TAPE. PT DENIES PAIN OR FURTHER NEEDS AT THIS TIME.
--- NOTE | 2016-11-21 16:00 | NUR ---
PT IN SEMI FOWLERS POSITION. RESP. 20BPM EVEN AND UNLABORED. PT DENIES PAIN OR NEEDS AT THIS TIME.
--- NOTE | 2016-11-21 17:30 | NUR ---
PT IN DIALYSIS WITH CREW.
--- NOTE | 2016-11-21 19:00 | NUR ---
REPORT GIVEN TO 7P JESUS ALBERTO MCCAULEY RN.
--- NOTE | 2016-11-21 19:00 | NUR ---
PT NOT IN ROOM; OUT GETTING THORACENTESIS.
--- NOTE | 2016-11-21 21:05 | NUR ---
PT ARRIVED FROM DIALYSIS. BP 94/54 VIA MANUAL LEFT FA.
--- NOTE | 2016-11-21 21:10 | NUR ---
ASSESSMENT COMPLETE. S1S2. RR SHALLOW CLEAR BILATERALLY IN UPPER LOBES; DIMINISHED BILATERALLY IN LOWER LOBES. GENERALIZED EDEMA NOTED; PITTING EDEMA NOTED BILATERALLY TO LOWER EXTREMITIES. AAO. LEFT ARM PICC; RT IJ TRIALYSIS CATH. PT RETURNING FROM DIALYSIS. STATES "IT IS EASIER TO BREATH". NOTED DECREASE IN SWELLING FROM PREVIOUS DAY WITH PT. PT STATES LESS DISCOMFORT. RADIAL PULSES +2; PEDAL PULSES WEAK +1. COMPUTER TECH > 3 SECONDS ON LOWER EXTREMITES. PERRLA. ABLE TO FOLLOW COMMANDS. DENIES ANY NEEDS AT THIS TIME.
--- NOTE | 2016-11-21 22:45 | NUR ---
FSBS 257.
[2016-11-22] VITALS (11 sets, daily range): BP systolic 109–129; BP diastolic 39–57
--- NOTE | 2016-11-22 01:36 | NUR ---
PT C/O PAIN TO LEFT SHOULDER. PRN PAIN MEDICATION ADMINISTERED PER ORDERS. SEE EMAR FOR DETAILS.
--- NOTE | 2016-11-22 04:45 | NUR ---
ORAL CARE PROVIDED.
[2016-11-22 05:09] LABS: BASOPHILS 0 % (0-2); EOSINOPHILS 0 % (0-7); HEMATOCRIT 28.5 % (36.0-48.0); HEMOGLOBIN 9.7 g/dL (12-16); IMMATURE GRANULOCYTES 0.8 % (0-5); LYMPHOCYTES 2.2 % (15-50); MCH 29.9 pg (26.0-34.0); MEAN PLATELET VOLUME 9.9 fL (7.4-10.4); MONOCYTES 7.7 % (2-11); NEUTROPHILS 89.3 % (40-80); PLATELET COUNT 510 10x3/uL (130-400); RBC 3.24 10x6/uL (4.00-5.40); RDW 13.9 % (11.5-14.5); WBC 34.1 10x3/uL (4.8-10.8)
[2016-11-22 05:19] LABS: ALBUMIN 2.2 g/dL (3.4-5.0); ANION GAP 16.5 mmol/L (8-16); BILIRUBIN - TOTAL 0.34 mg/dL (0.2-1.3); CALCIUM 8.9 mg/dL (8.5-10.1); CREATININE - SERUM 5.8 mg/dL (0.6-1.3); MAGNESIUM - SERUM 2.3 mg/dL (1.8-2.4); PHOSPHOROUS 4.7 mg/dL (2.5-4.9); POTASSIUM - SERUM 3.4 mmol/L (3.5-5.1)
[2016-11-22 05:28] LABS: CARBON DIOXIDE 19.9 mmol/L (21.0-32.0)
--- NOTE | 2016-11-22 07:25 | NUR ---
ASSESSMENT COMPLETED.LYING QUIETLY WITH FAMILY AT BEDSIDE. PICC LINE TO LEFT ARM WITH D5NS AT 5, TPN AT 60 AND ZOFRAN AT 4.7. RIGHT TRIALYSIS TO NECK. RESERVE RIGHT ARM. C/O NAUSEA. WILL MONITOR
--- NOTE | 2016-11-22 11:03 | NUR ---
TO DIAYLSIS PER BED
--- NOTE | 2016-11-22 13:21 | NUR ---
RESTING QUIETLY RESP UNLABORED NAD NOTED
--- NOTE | 2016-11-22 19:00 | NUR ---
Received patient resting in bed with eyes open and family at bedside, assessment completed per flowsheet. Patient AO x4, calm and cooperative c/o nausea. Eyes PERRLA @ 4mm with brisk response, sclera is white. R IJ Hemosplit noted, patent with dressing intact. S1/S2 noted, rhythmic and regular. Breathing is slightly shallow on 3L via NC, Lung sounds clear bilateral upper and mid with diminished lower. Abdomen is firm and distended, non-tender to palpation with bowel sounds hyperactive x4. Patient able to ambulate to commode, anuric. Full ROM all extremities with all pulses palpable, cap refill < 3 sec. Patient R arm reserve. L upper arm PICC noted, patent with dressing intact. PRN Nausea medication given, will reassess. No further needs at this time, all VSS and will continue to monitor.
[2016-11-22 20:07] LABS: ACID FAST SMEAR Negative (()); AFB SPECIMEN PROCESSING Concentration (())
--- NOTE | 2016-11-22 21:40 | NUR ---
Patient vomited small amount of Green/yellow emesis, PRN medication give and repositioned for comfort. Cold washcloths provided, will continue to monitor.
--- NOTE | 2016-11-22 23:00 | NUR ---
Reassessment completed per flowsheet, patient resting in bed with eyes open with family at bedside. S1/S2 noted rythmic and regular. Breathing is slightly shallow and unlabored on 3L via NC. All pulses palpable with cap refill < 3 sec. Abdomen is distended and firm with patient c/o nausea, will provide PRN medication when available. No further needs at this time, all VSS and will continue to monitor.
[2016-11-23] VITALS: BP 126/44
--- NOTE | 2016-11-23 00:50 | NUR ---
Patient states feeling "like I'm going to be sick", attempted to reposition for comfort. Will provide PRN medication when available, and will continue to monitor.
--- NOTE | 2016-11-23 03:00 | NUR ---
Reassessment completed per flowsheet, patient laying in bed with eyes closed and family at bedside. S1/S2 noted rhythmic and regular, with all pulses palpable and cap refill < 3 sec. Breathing is slightly shallow and unlabored on 3L via NC. Patient c/o nausea, will provide PRN medication when available. Denies pain or other needs at this time, all VSS and will continue to monitor.
[2016-11-23 04:00] VITALS: BP 112/43
--- NOTE | 2016-11-23 04:20 | NUR ---
Patient incontinent of urine in bed, small amount of dark yellow urine noted on linens. Complete bed bath/linen change performed, patient tolerated well.
--- NOTE | 2016-11-23 05:00 | NUR ---
Am Labs collected without difficulty, patient on electrolyte protocol. Will treat based on results, no further needs at this time.
[2016-11-23 05:40] LABS: BASOPHILS 0 % (0-2); EOSINOPHILS 0.1 % (0-7); HEMATOCRIT 29.1 % (36.0-48.0); HEMOGLOBIN 9.8 g/dL (12-16); IMMATURE GRANULOCYTES 0.8 % (0-5); LYMPHOCYTES 2.5 % (15-50); MCH 29.9 pg (26.0-34.0); MCHC 33.7 g/dL (31.0-37.0); MCV 88.7 fL (80.0-100.0); MEAN PLATELET VOLUME 9.7 fL (7.4-10.4); MONOCYTES 6.2 % (2-11); NEUTROPHILS 90.4 % (40-80); PLATELET COUNT 390 10x3/uL (130-400); RBC 3.28 10x6/uL (4.00-5.40); RDW 14.1 % (11.5-14.5); WBC 36.5 10x3/uL (4.8-10.8)
[2016-11-23 06:04] LABS: ALBUMIN 2.1 g/dL (3.4-5.0); ANION GAP 14.6 mmol/L (8-16); BILIRUBIN - TOTAL 0.4 mg/dL (0.2-1.3); CALCIUM 9.1 mg/dL (8.5-10.1); CARBON DIOXIDE 21.7 mmol/L (21.0-32.0); CREATININE - SERUM 5.6 mg/dL (0.6-1.3); MAGNESIUM - SERUM 2.3 mg/dL (1.8-2.4); PHOSPHOROUS 4.3 mg/dL (2.5-4.9); POTASSIUM - SERUM 3.3 mmol/L (3.5-5.1); PROTEIN - SERUM 4.9 g/dL (6.4-8.2)
--- NOTE | 2016-11-23 07:32 | NUR ---
ASSESSMENT COMPLETED.ALERT AND ORIENTED. 02 AT 3 L/M PER NC. PICC LINE TO LEFT ARM WITH TPN AT 60, ZOFRAN AT 4.7 AND D5NS AT 5. RIGHT IJ TRIALYSIS NOTED. RIGHT ARM IS RESERVED. FAMILY AT BEDSIDE. DENIES ANY NEEDS. WILL MONITOR
[2016-11-23 08:18] VITALS: BP 117/64
--- NOTE | 2016-11-23 09:19 | NUR ---
BRASS BUFFER AT BEDSIDE WITH CARE IN PROGRESS. CALL LIGHT IS IN REACH WITH NEEDS DENIED WILL CONTINUE TO MONITOR NEEDS
--- NOTE | 2016-11-23 10:31 | NUR ---
Nutrition follow-up: Pt NPO; abdomen firm, distended at this time. TPN infusing @ 60 ml/hr; renal managing Intralipids 20% 250 ml Q 72 hours. Pt has started dialysis RDN following.
[2016-11-23 11:44] VITALS: BP 93/40
[2016-11-23 12:15] LABS: FUNGUS STAIN Final report (())
--- NOTE | 2016-11-23 12:47 | NUR ---
LYING QUIETLY. STATES NAUSEA IS BETTER. FAMILY AT BEDSIDE. DENIES ANY NEEDS.
[2016-11-23 13:14] LABS: HEPATITIS C ANTIBODY <0.1 (0.0-0.9)
[2016-11-23 15:28] VITALS: BP 108/60
[2016-11-23 15:46] LABS: INR 1.16 (0.85-1.17); PROTIME 14.7 SECONDS (11.6-15.0)
--- NOTE | 2016-11-23 18:53 | NUR ---
LYING QUIETLY. MEMOPEN STARTED. FAMILY AT BEDSIDE
[2016-11-23 19:00] VITALS: BP 114/56
--- NOTE | 2016-11-23 20:25 | NUR ---
ALERT/ORIENTED X 4. ON 02 AT 3L/NC. LEFT ARM PICC WITH TPN 60 ML/HR AND ZOFRAN 4.7ML/HR INFUSING. C/O NAUSEA. ADMIN PRN ZOFRAN 4MG IV. R IJ TRIALYSIS C/D/I. HAS CALL LIGHT IN REACH. DAUGHTER PRESENT IN ROOM.
[2016-11-24] VITALS: BP 151/56
[2016-11-24 04:00] VITALS: BP 156/75
--- NOTE | 2016-11-24 04:07 | NUR ---
FARM MANAGER PRESENT IN ROOM. DENIES PAIN OR ANY NEEDS.
[2016-11-24 06:45] LABS: BASOPHILS 0 % (0-2); EOSINOPHILS 0 % (0-7); HEMATOCRIT 30.1 % (36.0-48.0); IMMATURE GRANULOCYTES 1.1 % (0-5); LYMPHOCYTES 1.7 % (15-50); MCH 29.5 pg (26.0-34.0); MCHC 33.2 g/dL (31.0-37.0); MCV 88.8 fL (80.0-100.0); MEAN PLATELET VOLUME 10.1 fL (7.4-10.4); MONOCYTES 4.9 % (2-11); NEUTROPHILS 92.3 % (40-80); PLATELET COUNT 290 10x3/uL (130-400); RBC 3.39 10x6/uL (4.00-5.40); RDW 14.3 % (11.5-14.5); WBC 44.7 10x3/uL (4.8-10.8)
[2016-11-24 07:19] LABS: ALBUMIN 2.2 g/dL (3.4-5.0); ANION GAP 18.4 mmol/L (8-16); BILIRUBIN - TOTAL 0.4 mg/dL (0.2-1.3); CALCIUM 10.1 mg/dL (8.5-10.1); CARBON DIOXIDE 19.3 mmol/L (21.0-32.0); CREATININE - SERUM 6.4 mg/dL (0.6-1.3); MAGNESIUM - SERUM 2.5 mg/dL (1.8-2.4); PHOSPHOROUS 4.6 mg/dL (2.5-4.9); POTASSIUM - SERUM 3.7 mmol/L (3.5-5.1); PROTEIN - SERUM 5.2 g/dL (6.4-8.2)
--- NOTE | 2016-11-24 08:02 | NUR ---
ASSESSMENT DONE. DENIES NEEDS.
--- NOTE | 2016-11-24 08:07 | NUR ---
RESTS IN BED WITH CALL LIGHT IN REACH. IV PATENT. AT BS. WILL CONT. PLAN OF CARE.
[2016-11-24 08:31] VITALS: BP 140/36
--- NOTE | 2016-11-24 16:12 | NUR ---
TO ICU PER BED
--- NOTE | 2016-11-24 16:17 | NUR ---
REC'D INTO ROOM 2303 POST CODE FROM FLOOR. HOOKED UP TO CM.BP 130/87. TEMP 97.7 ORAL. HR 96. 100% FIO2 ON VENT. RR 20 NOT BREATHING OVER VENT.
--- NOTE | 2016-11-24 16:30 | NUR ---
I CALLED 2161 AND SPOKE WITH KHOI. HAS PRIMARY CARE PHYSCIAN BEEN NOTIFIED??? AND SHE SAID VALDEMAR HAD SPOKE WITH DR. HICKEY.
--- NOTE | 2016-11-24 16:47 | NUR ---
BRADYING DOWN. ASYTOLE. CODE BLUE CALLED. SEE CODE BLUE SHEET.
--- NOTE | 2016-11-24 17:13 | NUR ---
DR. HICKEY CALLED AND UPDATED ABOUT PT. .
--- NOTE | 2016-11-24 17:17 | NUR ---
POST MORTEM CARE BEING PERFORMED BY FÁTIMA BALLESTEROS RN AND LENO DAMON RN. DR. MORFIN SPEAKING WITH FAMILY IN FAMILY ROOM.
== END 2016-11-24 17:17 | DRG 438 ==
LOC: OBSVTIME 14:55 → D.M2 14:55 → D.SDCHOLD 14:55 → D.M2 15:16 → D.ICU 11-24 16:27
PROVIDERS: Emergency Medicine; Family Medicine; Internal Medicine Nephrology; Internal Medicine Pulmonary Disease; Surgery; ADMIT Family Medicine
PROC: 02HV33Z Insertion of Infusion Device into Superior Vena Cava, Percutaneous Approach (ICD-10-PCS; principal; 2016-11-06)
PROC: B548ZZA Ultrasonography of Superior Vena Cava, Guidance (ICD-10-PCS; 2016-11-06)
PROC: 05HA33Z Insertion of Infusion Device into Left Brachial Vein, Percutaneous Approach (ICD-10-PCS; 2016-11-16)
PROC: B54NZZA Ultrasonography of Left Upper Extremity Veins, Guidance (ICD-10-PCS; 2016-11-16)
PROC: 0T9B70Z Drainage of Bladder with Drainage Device, Via Natural or Artificial Opening (ICD-10-PCS; 2016-11-16)
PROC: 0W9B3ZZ Drainage of Left Pleural Cavity, Percutaneous Approach (ICD-10-PCS; 2016-11-21)
PROC: 5A1D60Z (ICD-10-PCS; 2016-11-21)
PROC: 5A12012 Performance of Cardiac Output, Single, Manual (ICD-10-PCS; 2016-11-24)
PROC: 0BH17EZ Insertion of Endotracheal Airway into Trachea, Via Natural or Artificial Opening (ICD-10-PCS; 2016-11-24)
PROC: 5A1935Z Respiratory Ventilation, Less than 24 Consecutive Hours (ICD-10-PCS; 2016-11-24)
DX: K86.3 Pseudocyst of pancreas (principal); J69.0 Pneumonitis due to inhalation of food and vomit; J96.01 Acute respiratory failure with hypoxia; K85.90 Acute pancreatitis without necrosis or infection, unspecified; N17.9 Acute kidney failure, unspecified; E44.0 Moderate protein-calorie malnutrition; I13.0 Hypertensive heart and chronic kidney disease with heart failure and stage 1 through stage 4 chronic kidney disease, or unspecified chronic kidney disease; K56.7 Ileus, unspecified; E87.1 Hypo-osmolality and hyponatremia; I82.431 Acute embolism and thrombosis of right popliteal vein; I82.441 Acute embolism and thrombosis of right tibial vein; E87.2 Acidosis; I82.621 Acute embolism and thrombosis of deep veins of right upper extremity; I48.91 Unspecified atrial fibrillation; E11.43 Type 2 diabetes mellitus with diabetic autonomic (poly)neuropathy; K31.84 Gastroparesis; E86.0 Dehydration; R68.81 Early satiety; E11.21 Type 2 diabetes mellitus with diabetic nephropathy; E11.22 Type 2 diabetes mellitus with diabetic chronic kidney disease; N18.9 Chronic kidney disease, unspecified; I50.9 Heart failure, unspecified; I07.1 Rheumatic tricuspid insufficiency; E87.5 Hyperkalemia; Z79.01 Long term (current) use of anticoagulants; D64.9 Anemia, unspecified; J98.01 Acute bronchospasm; Z68.35 Body mass index [BMI] 35.0-35.9, adult; E87.6 Hypokalemia